=== PATIENT | female | born 1940 | race African-American/Black ===

== ENCOUNTER 2017-07-20 13:22 | Inpatient (IN) ==
[2017-07-20] MEDS ORDERED: Piperacillin/Tazobactam 3.375 GM in 0.9 % Sodium Chloride Mini Bag 100 ML IVPB ONE (20:03)
[2017-07-20] MEDS ORDERED: 0.9 % Sodium Chloride 1,000 ML IVC ONE (20:04)
--- NOTE | 2017-07-20 20:24 | Emergency Department Note ---
Disposition Clinical Impression: Pyelonephritis, Urinary tract infection due to ESBL Klebsiella Disposition: Admitted As Inpatient Condition: Fair Referrals: Jerome Bass MD [Primary Care Provider] - Forms: ED Satisfaction Letter, Work/School Release General Adult HPI - General Chief complaint: ED General Medical Stated complaint: "sent for admission by Dr. Bass". Time Seen by Provider: 07/20/17 19:58 Source: patient Limitations: no limitations - History of Present Illness Pain Scale: 0 - Related Data Home Medications Medication Instructions Recorded Confirmed Captopril [Capoten] 25 mg PO DAILY 03/14/15 07/20/17 Gabapentin [Neurontin] 600 mg PO HS 03/14/15 07/20/17 Levothyroxine [Synthroid] 75 mcg PO MOTUWETHFRSA 03/14/15 07/20/17 Trazodone HCl 200 mg PO HS 03/14/15 07/20/17 amLODIPine [Norvasc] 5 mg PO DAILY 03/14/15 07/20/17 diazePAM [Valium] 2 mg PO HS 03/14/15 07/20/17 metFORMIN [Glucophage] 500 mg PO BIDWM 03/14/15 07/20/17 Ergocalciferol (VITAMIN D2) 50,000 unit PO TU 07/20/17 07/20/17 [Vitamin D2] Furosemide [Lasix] 20 mg PO DAILY 07/20/17 07/20/17 HYDROcodone/Acet 7.5/325 mg [[place] 1 tab PO Q4H PRN 07/20/17 07/20/17 7.5-325 mg] Levothyroxine [Synthroid] 150 mcg PO GOEL 07/20/17 07/20/17 Omeprazole [PriLOSEC] 40 mg PO DAILY 07/20/17 07/20/17 Sodium Chloride/Aloe Vera [[place] 1 spray NS TID PRN 07/20/17 07/20/17 Saline Nasal Gel [place]] Warfarin perPT [Coumadin perPT] 6.5 mg PO QPM 07/20/17 07/20/17 cephALEXin [Keflex] 500 mg PO Q12H 07/20/17 07/20/17 Allergies Allergy/AdvReac Type Severity Reaction Status Date / Time Sulfa (Sulfonamide Allergy Rash Verified 03/14/15 20:04 Antibiotics) Past Medical History - Past Medical History Medical history: Reports: cancer, diabetes, GERD, hypertension Psychiatric history: Reports: no psych history - Social History Smoking Status: Former smoker Smokeless Tobacco Status: No Alcohol use: Reports: none Drug use: Reports: none Physical Exam - General Limitations: no limitations General appearance: alert, in no apparent distress Course Vital Signs Temperature 97.7 F 07/20/17 13:25 Pulse Rate 72 07/20/17 13:25 Respiratory Rate 18 07/20/17 13:25 Blood Pressure 160/72 07/20/17 13:25 O2 Sat by Pulse Oximetry 96 07/20/17 13:25 Temperature 97.7 F 07/20/17 13:25 Pulse Rate 72 07/20/17 13:25 Respiratory Rate 18 07/20/17 13:25 Blood Pressure 160/72 07/20/17 13:25 O2 Sat by Pulse Oximetry 96 07/20/17 13:25 Oxygen Delivery Oxygen Delivery Room Air Medical Decision Making - Lab Data Result diagrams: 07/20/17 20:35 07/20/17 20:35 Lab Results 07/20/17 07/20/17 07/20/17 Range/Units 20:35 20:35 20:35 WBC 5.9 D (4.3-11.1) K/mcL RBC 4.14 (3.82-4.97) M/mcL Hgb 11.9 (11.5-15.4) g/dL Hct 37.7 (35.3-44.9) % MCV 91.1 (83.0-100.0) fL MCH 28.7 (28.0-33.3) pg MCHC 31.6 (31.6-35.5) g/dL RDW 15.9 H (11.5-14.5) % Plt Count 261 (140-400) K/mcL MPV 8.7 L (9.4-12.4) fL Immature Gran % 0.5 (0-4) % Seg Neutrophils % 48.2 % Lymphocytes % 37.8 % Monocytes % 8.8 % Eosinophils % 4.2 % Basophils % 0.5 % Neutrophils # 2.8 (1.6-8.9) K/mcL Lymphocytes # 2.2 (0.6-4.6) K/mcL Monocytes # 0.5 (0.0-1.3) K/mcL Eosinophils # 0.3 (0.0-0.6) K/mcL Basophils # 0.0 (0.0-0.2) K/mcL Sodium 137 (136-145) mEq/L Potassium 3.6 (3.5-5.1) mEq/L Chloride 101 (98-107) mEq/L Carbon Dioxide 28 (23-29) mEq/L BUN 8 (8-23) mg/dL Creatinine 0.68 (0.60-1.20) mg/dL Est GFR ( Amer) > 60 (> 60) Est GFR (Non-Af Amer) > 60 (> 60) BUN/Creatinine Ratio 12 (6-26) Glucose 152 H (70-105) mg/dL Calculated Osmolality 285 (280-300) Lactic Acid 1.2 (0.5-2.2) mmol/L Calcium 9.5 (8.6-10.3) mg/dL Attestation Statement - Attestation Attestation: I examined this patient and my medical decision-making was reviewed with the Resident Physician. I agree with the documented findings, disposition and treatment plan as described except to the extent set forth below. Patient to ED for admission. Patient was sent in by her PCP as her urine grew out ESBL. Sensitive to Zosyn a carbon ertapenem's. Patient states she had a fever but is not today. On examination she is in no acute distress pleasant conversant. 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 Abdomen soft. Does have a urostomy bag in the right side of her abdomen from prior bladder cancer. Plan. IV antibiotics and admit. She does have a swollen left leg and will rule her out for DVT. Patient is on Coumadin. Ultrasound negative for DVT. A metabolic started. Admitted to medicine. Patient does not meet sepsis criteria.
--- NOTE | 2017-07-20 20:31 | Urgent Care Visit Notes ---
Disposition Clinical Impression: Pyelonephritis, Urinary tract infection due to ESBL Klebsiella Disposition: Admitted As Inpatient Condition: Fair Referrals: Jerome Bass MD [Primary Care Provider] - Forms: ED Satisfaction Letter, Work/School Release Time of Disposition: 21:41 History of Present Illness - General Chief complaint: ED General Medical Stated complaint: "sent for admission by Dr. Bass". Time Seen by Provider: 07/20/17 19:58 Limitations: no limitations Nursing Notes Reviewed: Yes Vital Signs Reviewed: Yes - History of Present Illness HPI Narrative: 77-year-old female complains of feeling ill with fever that started 5 days ago and severe chills that started 4 days ago. Patient states that she saw her PCP Dr. Bass 3 days ago and was given a antibiotic shot in her bottom, most likely Rocephin. Patient states her symptoms did not get any better and called her PCP again, who directed her to come to the ED for failed outpatient treatment. Patient has a history of bladder cancer and currently has a urostomy and bag because she had bladder cancer. Patient's currently on Coumadin for superficial DVTs in the past, but currently complains of worsening leg swelling over the past several days well. - Related Data Home Medications Medication Instructions Recorded Confirmed Captopril [Capoten] 25 mg PO DAILY 03/14/15 07/20/17 Gabapentin [Neurontin] 600 mg PO HS 03/14/15 07/20/17 Levothyroxine [Synthroid] 75 mcg PO MOTUWETHFRSA 03/14/15 07/20/17 Trazodone HCl 200 mg PO HS 03/14/15 07/20/17 amLODIPine [Norvasc] 5 mg PO DAILY 03/14/15 07/20/17 diazePAM [Valium] 2 mg PO HS 03/14/15 07/20/17 metFORMIN [Glucophage] 500 mg PO BIDWM 03/14/15 07/20/17 Ergocalciferol (VITAMIN D2) 50,000 unit PO TU 07/20/17 07/20/17 [Vitamin D2] Furosemide [Lasix] 20 mg PO DAILY 07/20/17 07/20/17 HYDROcodone/Acet 7.5/325 mg [[place] 1 tab PO Q4H PRN 07/20/17 07/20/17 7.5-325 mg] Levothyroxine [Synthroid] 150 mcg PO GOEL 07/20/17 07/20/17 Omeprazole [PriLOSEC] 40 mg PO DAILY 07/20/17 07/20/17 Sodium Chloride/Aloe Vera [[place] 1 spray NS TID PRN 07/20/17 07/20/17 Saline Nasal Gel [place]] Warfarin perPT [Coumadin perPT] 6.5 mg PO QPM 07/20/17 07/20/17 cephALEXin [Keflex] 500 mg PO Q12H 07/20/17 07/20/17 Allergies Allergy/AdvReac Type Severity Reaction Status Date / Time Sulfa (Sulfonamide Allergy Rash Verified 03/14/15 20:04 Antibiotics) All systems ED: reviewed and negative except as stated. Review of Systems: As Per HPI Constitutional: Reports: fever, chills Respiratory: Reports: cough Musculoskeletal: Reports: back pain Past Medical History - Past Medical History Attestation: Yes The following information was validated with the patient. Source: patient, nursing notes reviewed Medical history: Reports: cancer, diabetes, GERD, hypertension Psychiatric history: Reports: no psych history - Social History Smoking Status: Former smoker Smokeless Tobacco Status: No Alcohol use: Reports: none Drug use: Reports: none Physical Exam Vital Signs Temperature 97.7 F 07/20/17 13:25 Pulse Rate 72 07/20/17 13:25 Respiratory Rate 18 07/20/17 13:25 Blood Pressure 160/72 07/20/17 13:25 O2 Sat by Pulse Oximetry 96 07/20/17 13:25 Temperature 97.7 F 07/20/17 13:25 Pulse Rate 72 07/20/17 13:25 Respiratory Rate 18 07/20/17 13:25 Blood Pressure 160/72 07/20/17 13:25 O2 Sat by Pulse Oximetry 96 07/20/17 13:25 Oxygen Delivery Oxygen Delivery Room Air CONSTITUTIONAL: Well-appearing; well-nourished; A&O X 3, in no apparent distress. Patient is nontoxic-appearing, and has fluid speech, and is very pleasant Vital signs: Patient is afebrile at 97.7, pulse 72, respirations 18, blood pressure: hypertensive at 160/72, O2 sat 96% on room air. HEAD: Normocephalic; atraumatic EYES: PERRL, no scleral icterus NOSE: The nose is normal in appearance without rhinorrhea NECK: No JVD or distended neck veins RESP: Normal chest excursion with respiration; breath sounds clear and equal bilaterally; no wheezes, rhonchi, or rales CARD: Regular rhythm, without murmurs, rub or gallop ABD: Non-distended; non-tender, soft, without rigidity, rebound or guarding,no pulsatile mass. Urostomy with bag right lower quadrant. No signs of inflammation surrounding urostomy. CHEST: No pain with palpation SKIN: Normal for age and race; warm and dry without diaphoresis ; no apparent lesions EXTREMITIES: Pulses are 2 plus and equal times 4 extremities, asymmetric lower extremities. Left lower extremity is larger than the right pitting edema present 2+ - General Limitations: no limitations General appearance: alert, in no apparent distress Urogenital-Female - MDM Narrative Medical decision making narrative: Vital Signs Temperature 97.7 F 07/20/17 13:25 Pulse Rate 72 07/20/17 13:25 Respiratory Rate 18 07/20/17 13:25 Blood Pressure 160/72 07/20/17 13:25 O2 Sat by Pulse Oximetry 96 07/20/17 13:25 Temperature 97.7 F 07/20/17 13:25 Pulse Rate 72 07/20/17 13:25 Respiratory Rate 18 07/20/17 13:25 Blood Pressure 160/72 07/20/17 13:25 O2 Sat by Pulse Oximetry 96 07/20/17 13:25 Oxygen Delivery Oxygen Delivery Room Air Patient presents today with a diagnosis of UTI by ESBL Klebsiella. She reports having fevers and chills. Patient will need to be admitted for IV antibiotics. Sensitivities have not already been published. She does sensitivities to Zosyn , ertapenem and imipenem. Patient will be started on Zosyn 3.375 IV. Labs have been ordered to identify the extent of patient's infection. Peripheral blood cultures have been ordered and patient shows that she meets criteria for sepsis since symptoms have been going on for about 5 days and patient is 77 years old. Doppler study has been ordered for patient's left lower extremity for unilateral swelling, to identify possible DVT. Patient does not have any shortness of breath currently and does not have O2 sats last than 95% on room air. The patient begins to be symptomatic she should be sent for CTA of the chest. Patient's INR will be checked to see if she is therapeutic. If not patient will need to be bridged appropriately to get her back to therapeutic levels. Patient's DVT study was negative. Patient's lactic acid was negative and patient's WBC count was not elevated. Patient's creatinine level is not elevated as well. Patient has agreed to inpatient therapy and has been accepted for admission. Dr. Del Rio the hospitalist as accepted patient for admission in stable condition. - Medical Records Medical records reviewed: Yes I reviewed the patient's medical records. Review of patient's past microbiology reports show that patient has had several UTIs from Escherichia coli and Klebsiella. This is patient's second bout of ESBL - Lab Data Lab results reviewed: Yes I reviewed the patient's lab results. Lab results narrative: Short CBC 07/20/17 Range/Units 20:35 WBC 5.9 D (4.3-11.1) K/mcL Hgb 11.9 (11.5-15.4) g/dL Hct 37.7 (35.3-44.9) % Plt Count 261 (140-400) K/mcL Neutrophils # 2.8 (1.6-8.9) K/mcL BMP 07/20/17 Range/Units 20:35 Sodium 137 (136-145) mEq/L Potassium 3.6 (3.5-5.1) mEq/L Chloride 101 (98-107) mEq/L Carbon Dioxide 28 (23-29) mEq/L BUN 8 (8-23) mg/dL Creatinine 0.68 (0.60-1.20) mg/dL Glucose 152 H (70-105) mg/dL Calcium 9.5 (8.6-10.3) mg/dL Result diagrams: 07/20/17 20:35 07/20/17 20:35 - Radiology Data Radiology results reviewed: Yes I reviewed the patient's radiology results. Chest X-Ray 07/20/17 20:19 IMPRESSION: No acute cardiopulmonary findings. No significant change. D/ 07/20/2017 21:08:58 Landon Greenwood MD / Dennise Enriquez Interpreting Provider: Landon Greenwood MD - EKG Data EKG attestation: Yes I reviewed and interpreted this EKG. EKG results narrative: EKG taken 07/20/2017 at 2026 hrs. shows a sinus rhythm at a rate of 61 bpm with no acute ST elevations and no depressions in any leads. There is no QRS widening or QT prolongation either. Previous EKG for comparison taken in 04/30/2017 also shows a sinus rhythm rate of 60 bpm no change in morphology of waveform from today's EKG. Course - Reevaluation(s) Reevaluation #1: Patient still well. Currently comfortable. Currently has no complaints. Time: 21:25 Reevaluation #2: Patient has been updated on her admission and current labs. Patient is doing well. Patient thought that I was Dr. Bass when I walked into the room. But her friend in the room states that she is blind and she is pain attention to voices, and apparently I sound like Dr. Bass. Time: 21:39 - Consultations Consultation #1: Dr. Del Rio the hospitalist as accepted patient for admission in stable condition. Time: 21:25 Vital Signs Temperature 97.7 F 07/20/17 13:25 Pulse Rate 72 07/20/17 13:25 Respiratory Rate 18 07/20/17 13:25 Blood Pressure 160/72 07/20/17 13:25 O2 Sat by Pulse Oximetry 96 07/20/17 13:25 Temperature 97.7 F 07/20/17 13:25 Pulse Rate 72 07/20/17 13:25 Respiratory Rate 18 07/20/17 13:25 Blood Pressure 160/72 07/20/17 13:25 O2 Sat by Pulse Oximetry 96 07/20/17 13:25 Oxygen Delivery Oxygen Delivery Room Air
[2017-07-20 20:49] LABS: Basophils % 0.5 %; Eosinophils # 0.3 K/mcL (0.0-0.6); Eosinophils % 4.2 %; Hematocrit 37.7 % (35.3-44.9); Hemoglobin 11.9 g/dL (11.5-15.4); Immature Granulocytes % 0.5 % (0-4); Lymphocytes # 2.2 K/mcL (0.6-4.6); Lymphocytes % 37.8 %; Mean Corpuscular HGB Conc 31.6 g/dL (31.6-35.5); Mean Corpuscular Hemoglobin 28.7 pg (28.0-33.3); Mean Corpuscular Volume 91.1 fL (83.0-100.0); Mean Platelet Volume 8.7 fL (9.4-12.4); Monocytes # 0.5 K/mcL (0.0-1.3); Monocytes % 8.8 %; Platelet Count 261 K/mcL (140-400); Red Blood Count 4.14 M/mcL (3.82-4.97); Red Cell Distribution Width 15.9 % (11.5-14.5); Segmented Neutrophils % 48.2 %
[2017-07-20 21:00] LABS: Neutrophils # 2.8 K/mcL (1.6-8.9)
[2017-07-20 21:06] LABS: BUN/Creatinine Ratio 12 (6-26); Blood Urea Nitrogen 8 mg/dL (8-23); Calcium 9.5 mg/dL (8.6-10.3); Carbon Dioxide 28 mEq/L (23-29); Chloride 101 mEq/L (98-107); Glucose 152 mg/dL (70-105); Osmolality,Calculated 285 (280-300); Potassium 3.6 mEq/L (3.5-5.1); Sodium 137 mEq/L (136-145); eGFR For African Americans > 60 (> 60); eGFR For Non-African Americans > 60 (> 60)
[2017-07-20 21:29] LABS: INR 1.3
[2017-07-21] MEDS ORDERED: Dextrose Gel 15 GM/37.5 ML TUBE PO PRN ×2 (03:02)
[2017-07-21] MEDS ORDERED: D5% in Water 1,000 ML IVC PRN (03:02)
[2017-07-21] MEDS ORDERED: *HR* Dextrose 50 % in Water (Syg) 50 ML SYRINGE IVP PRN (03:02)
[2017-07-21] MEDS ORDERED: Acetaminophen 325 MG TABLET PO PRN (03:02)
[2017-07-21] MEDS ORDERED: Naloxone 0.4 MG/ML INJ IVP PRN (03:02)
[2017-07-21] MEDS ORDERED: Saline Nasal Spray 44 ML BOTTLE NS PRN (03:10)
--- NOTE | 2017-07-21 03:18 | Internal Med History&Physical ---
Date of Encounter: 07/21/17 Time of Encounter: 02:35 Internal Medicine - H&P: HPI Chief complaint: fever; UTI Admitted From: Emergency Dept Plans for Post Hospital Care: Home History of present illness: Ms. Pruett is a 77 year old female who presents to the ER as advised by her PCP. Patient was advised to come to the ER for a urine culture growing out ESBL producing Klebsiella. Patient had been on oral antibiotics for presumptive UTI. Urine culture came back growing the above organism requiring IV antibiotics. She therefore came to ER as advised. She had blood cultures obtained and was started on IV antibiotics. Upon my assessment of the patient, she reports having had fevers up to 102 degrees Fahrenheit over the last 4 days. She has had some nausea and poor appetite and fluid intake. However, she has had no vomiting or diarrhea. She denies any flank pain but she has had some suprapubic pain. Patient denies any chest pain, shortness of breath, cough, or congestion. She had bladder resection several years ago and has a urostomy in place. This was done for treatment of her bladder cancer. 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 However, her INR level is subtherapeutic. She did have low extremity Doppler of her left leg in the ER for concerns of DVT, and this was negative. She has complained of increased swelling and cramping in her left leg lately. Past Med Surg Social Fam HX - Past Medical History Attestation: Yes The following information was validated with the patient. Source: patient, old records reviewed Medical history: cancer, DVT, diabetes, GERD, hypertension Psychiatric history: no psych history - Past Surgical History Surgical History: cholecystectomy, hysterectomy, other (bladder resection and urostomy placement ) - Social History Smoking Status: Former smoker Smokeless Tobacco Status: No Alcohol use: none Drug use: none Current living situation: Home Activity Level: Independent ambulation Recent Out of Country Travel Within the Last 8 Weeks: No - Family History Mother Living Status: Hx Family Genitourinary Disorders: No Father Living Status: Hx Family Genitourinary Disorders: No Internal Medicine - H&P: Meds Captopril [Capoten] 25 mg PO DAILY 03/14/15 [History] Gabapentin [Neurontin] 600 mg PO HS 03/14/15 [History] Levothyroxine [Synthroid] 75 mcg PO MOTUWETHFRSA 03/14/15 [History] Trazodone HCl 200 mg PO HS 03/14/15 [History] amLODIPine [Norvasc] 5 mg PO DAILY 03/14/15 [History] diazePAM [Valium] 2 mg PO HS 03/14/15 [History] metFORMIN [Glucophage] 500 mg PO BIDWM 03/14/15 [History] Ergocalciferol (VITAMIN D2) [Vitamin D2] 50,000 unit PO TU 07/20/17 [History] Furosemide [Lasix] 20 mg PO DAILY 07/20/17 [History] HYDROcodone/Acet 7.5/325 mg [[place] 7.5-325 mg] 1 tab PO Q4H PRN 07/20/17 [ History] Levothyroxine [Synthroid] 150 mcg PO GOEL 07/20/17 [History] Omeprazole [PriLOSEC] 40 mg PO DAILY 07/20/17 [History] Sodium Chloride/Aloe Vera [[place] Saline Nasal Gel [place]] 1 spray NS TID PRN [History] Warfarin perPT [Coumadin perPT] 6.5 mg PO QPM 07/20/17 [History] cephALEXin [Keflex] 500 mg PO Q12H 07/20/17 [History] 3 Allergy/AdvReac Type Severity Reaction Status Date / Time Sulfa (Sulfonamide Allergy Rash Verified 03/14/15 20:04 Antibiotics) - Constitutional Constitutional: chills, fever(s), weakness, no night sweats - EENT Eyes: no blurry vision, no change in vision Ears: no ear pain, no tinnitus Nose, mouth and throat: no nasal congestion, no nasal discharge, no sinus pressure, no sore throat - Cardiovascular Cardiovascular ROS IM: no chest pain, no dyspnea, no dyspnea on exertion - Respiratory Respiratory: no cough, no hemoptysis, no chest congestion, no excessive phlegm production - Gastrointestinal Gastrointestinal: abdominal pain (suprapubic), nausea, no diarrhea, no hematemesis, no hematochezia, no melena, no vomiting - Genitourinary Genitourinary: no dysuria, no flank pain, no hematuria - Musculoskeletal Musculoskeletal ROS IM: muscle cramps, no arthralgias, no back pain, no joint swelling - Integumentary Integumentary IM: no rash, no jaundice - Neurological Neurological ROS: no disequilibrium, no dizziness, no focal weakness, no frequent falls - Psychiatric Psychiatric: no anxiety, no depression - Endocrine Endocrine IM: no polydipsia, no polyuria - Hematologic/Lymphatic Hematologic/Lymphatic: easy bruising, no lymphadenopathy - Allergic/Immunologic Allergic/Immunologic: no wheezing - Constitutional Vitals: Temp Pulse Resp BP Pulse Ox 97.5 F L 59 16 188/81 98 07/21/17 00:20 07/21/17 00:20 07/21/17 00:20 07/21/17 00:20 07/21/17 00:20 General appearance: Present: cooperative, mild distress, A&O X 3, pleasant, answers questions appropriately Exam: looks dry - Head Head exam: Present: atraumatic, normal inspection - Eye Eye exam: Present: EOMI, normal appearance, PERRL. Absent: scleral icterus Pupils: Present: normal accommodation - ENT ENT exam: Present: mucous membranes dry, normal exam, normal oropharynx - Neck Neck exam general surgery: Present: full ROM, supple. Absent: lymphadenopathy, tenderness, nuchal rigidity, thyromegaly - Respiratory Respiratory exam: Present: CTAB. Absent: chest wall tenderness, rales, respiratory distress, rhonchi, wheezes - Cardiovascular Cardiovascular exam: Present: RRR, +S1, +S2. Absent: diastolic murmur, systolic murmur - GI/Abdominal GI/Abdominal exam: Present: normal bowel sounds, soft, tenderness (mild suprapubic pain), no peritoneal signs. Absent: guarding, hepatomegaly, mass, rebound, splenomegaly - Extremities Exam Extremities exam: Present: calf tenderness (left leg), normal capillary refill, warm, radial pulses palpable and symmetrical. Absent: joint swelling Additional comments: left leg larger than right leg - Back Exam Back exam: Absent: CVA tenderness (L), CVA tenderness (R) - Neurological Exam Neurological exam: Present: alert, CN II-XII intact, oriented X3, no focal deficits - Psychiatric Psychiatric exam: Present: normal affect, normal mood - Skin Skin exam: Present: dry, warm. Absent: rash Internal Med - H&P Results - Labs CBC & Chem 7: 07/20/17 20:35 07/20/17 20:35 - Diagnostic Studies Chest x-ray Status: image reviewed by me (negative) - Assessment and plan (1) Urinary tract infection due to ESBL Klebsiella Current Visit: Yes Status: Acute Assessment and plan: 1. Patient placed on Zosyn based upon last urine culture and sensitivities. 2. Follow repeat urine and blood culture results and adjust antibiotics as necessary. (2) Complicated UTI (urinary tract infection) Current Visit: Yes Status: Acute Assessment and plan: 1. Will place on IVF and IV antibiotics -- catering to ESBL K. Pneumonia. 2. Follow clinical response and repeat culture results. 3. If necessary consult urology given her surgically altered anatomy. (3) Type 2 diabetes mellitus Current Visit: Yes Status: Chronic Assessment and plan: 1. Hold oral meds and place on SSI. 2. Monitor and adjust insulin dosing as necessary. 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 INR subtherapeutic. 2. Will place on Lovenox bridge therapy and continue Coumadin. 3. Adjust Coumadin dosing as necessary to achieve therapeutic INR.
[2017-07-21] MEDS: *HR* Enoxaparin 80 MG/0.8 ML SYRINGE SQ SCH ×2 (05:34→17:38)
[2017-07-21] MEDS: 0.9 % Sodium Chloride w KCl 20 MEQ/1,000 ML MLS IVC SCH ×2 (05:35→17:38)
[2017-07-21 06:36] LABS: INR 1.4; Prothrombin Time 15.1 Seconds (9.4-12.1)
[2017-07-21 06:53] LABS: Alanine Aminotransferase 10 Units/L (7-52); Albumin 3.2 g/dL (3.5-5.7); Alkaline Phosphatase 61 Units/L (34-104); Aspartate Amino Transferase 12 Units/L (13-39); BUN/Creatinine Ratio 12 (6-26); Bilirubin,Total 0.4 mg/dL (0.3-1.0); Blood Urea Nitrogen 7 mg/dL (8-23); Carbon Dioxide 28 mEq/L (23-29); Chloride 105 mEq/L (98-107); Globulin 3.1 g/dL (2.4-3.5); Glucose 101 mg/dL (70-105); Magnesium 1.8 mg/dL (1.6-2.6); Osmolality,Calculated 288 (280-300); Potassium 3.5 mEq/L (3.5-5.1); Sodium 140 mEq/L (136-145); Total Protein 6.3 g/dL (6.4-8.9); eGFR For African Americans > 60 (> 60); eGFR For Non-African Americans > 60 (> 60)
[2017-07-21 06:55] LABS: Basophils % 0.6 %; Eosinophils # 0.2 K/mcL (0.0-0.6); Eosinophils % 4.5 %; Hematocrit 35.1 % (35.3-44.9); Hemoglobin 11.4 g/dL (11.5-15.4); Immature Granulocytes % 0.7 % (0-4); Lymphocytes # 1.8 K/mcL (0.6-4.6); Lymphocytes % 33.3 %; Mean Corpuscular HGB Conc 32.5 g/dL (31.6-35.5); Mean Corpuscular Hemoglobin 29.3 pg (28.0-33.3); Mean Corpuscular Volume 90.2 fL (83.0-100.0); Mean Platelet Volume 8.9 fL (9.4-12.4); Monocytes # 0.5 K/mcL (0.0-1.3); Neutrophils # 2.7 K/mcL (1.6-8.9); Platelet Count 280 K/mcL (140-400); Red Blood Count 3.89 M/mcL (3.82-4.97); Red Cell Distribution Width 15.8 % (11.5-14.5); Segmented Neutrophils % 50.9 %
[2017-07-21] MEDS ORDERED: Piperacillin/Tazobactam 3.375 GM in 0.9 % Sodium Chloride Mini Bag 100 ML IVPB SCH (08:00)
[2017-07-21] MEDS: amLODIPine 5 MG TABLET PO SCH (08:32)
[2017-07-21] MEDS: Insulin LISPRO 300 UNITS/3 ML VIAL SQ SCH ×3 (08:34→17:36)
[2017-07-21] MEDS: *HR* HYDROcodone/Acet 7.5/325 mg TABLET PO PRN ×2 (14:57→21:53)
[2017-07-21] MEDS: Ertapenem 1,000 MG in 0.9 % Sodium Chloride Mini Bag 100 ML IVPB SCH (17:37)
[2017-07-21] MEDS ORDERED: *HR* Warfarin 5 MG TABLET PO ONE (18:00)
[2017-07-21] MEDS: diazePAM 2 MG TABLET PO SCH (21:53)
[2017-07-21] MEDS: Gabapentin 300 MG CAPSULE PO SCH (21:54)
[2017-07-21] MEDS: traZODone 50 MG TABLET PO SCH (21:54)
[2017-07-22] MEDS: *HR* Enoxaparin 80 MG/0.8 ML SYRINGE SQ SCH ×2 (05:42→17:15)
[2017-07-22 06:38] LABS: INR 1.4; Prothrombin Time 15.5 Seconds (9.4-12.1)
[2017-07-22] MEDS: *HR* HYDROcodone/Acet 7.5/325 mg TABLET PO PRN ×3 (06:53→21:42)
[2017-07-22] MEDS: amLODIPine 5 MG TABLET PO SCH (08:46)
[2017-07-22] MEDS: Furosemide 20 MG TABLET PO SCH (08:46)
[2017-07-22] MEDS: Ertapenem 1,000 MG in 0.9 % Sodium Chloride Mini Bag 100 ML IVPB SCH (08:47)
[2017-07-22] MEDS: Insulin LISPRO 300 UNITS/3 ML VIAL SQ SCH ×3 (08:48→17:15)
--- NOTE | 2017-07-22 11:38 | Internal Med Progress Note ---
Date of Encounter: 07/22/17 Time of Encounter: 11:15 - Assessment and plan (1) Urinary tract infection due to ESBL Klebsiella Current Visit: Yes Status: Acute Assessment and plan: 10 days of ertapenem day 2 today. She will need a PICC line which has been ordered. We will arrange for home service. Likely discharge tomorrow after PICC. (2) Complicated UTI (urinary tract infection) Current Visit: Yes Status: Acute Assessment and plan: see above (3) Type 2 diabetes mellitus Current Visit: Yes Status: Chronic (4) History of DVT of lower extremity Current Visit: Yes Status: Chronic Assessment and plan: Coumadin dose per pharmacy, discussed with the nurse. - Time Spent With Patient Total time spent is greater than 50% in coordination of care (as documented) at patient's floor/unit and/or counseling patient: 25 - 35 minutes - Subjective Interval history: She reports no new complaints today. No fever noted overnight. No events overnight. - Constitutional Vitals: Temp Pulse Resp BP Pulse Ox 97.7 F 75 15 148/78 94 07/22/17 10:58 07/22/17 10:58 07/22/17 10:58 07/22/17 10:58 07/22/17 10:58 General appearance: Present: cooperative, mild distress, A&O X 3, pleasant, answers questions appropriately Exam: Physical exam Gen: Comfortable, laying in bed, in no visible distress HEENT: Normocephalic, atraumatic. No conjunctival icterus. Moist oral mucosa. Neck: Supple Lungs: Clear to auscultation, no foreign sounds Heart: Normal S1-S2, no murmurs rubs or gallops Abdomen: Normoactive bowel sounds, no guarding rigidity or tenderness right- sided ostomy with urine. Extremities: No clubbing or cyanosi. 1+ edema of the extremities Neuro: Alert oriented 3, no focal deficits Skin: No skin lesions Internal Medicine: Result - Labs CBC & Chem 7: 07/21/17 06:16 07/21/17 06:16 - ABG Interpretation ABG results: PT/INR, D-dimer PT 15.5 Seconds (9.4-12.1) H 07/22/17 06:26 Consult Discharge Plan - Plan Referrals: Jerome Bass MD [Primary Care Provider] -
[2017-07-22] MEDS ORDERED: *HR* Warfarin 5 MG TABLET PO ONE (18:00)
[2017-07-22] MEDS: diazePAM 2 MG TABLET PO SCH (21:42)
[2017-07-22] MEDS: Gabapentin 300 MG CAPSULE PO SCH (21:42)
[2017-07-22] MEDS: traZODone 50 MG TABLET PO SCH (21:42)
[2017-07-23] MEDS: *HR* HYDROcodone/Acet 7.5/325 mg TABLET PO PRN ×2 (05:59→12:04)
[2017-07-23] MEDS: *HR* Enoxaparin 80 MG/0.8 ML SYRINGE SQ SCH (06:00)
[2017-07-23 07:07] LABS: INR 1.4
[2017-07-23] MEDS: Insulin LISPRO 300 UNITS/3 ML VIAL SQ SCH ×2 (08:38→12:02)
[2017-07-23] MEDS: Furosemide 20 MG TABLET PO SCH (09:01)
[2017-07-23] MEDS: Ertapenem 1,000 MG in 0.9 % Sodium Chloride Mini Bag 100 ML IVPB SCH (09:01)
[2017-07-23] MEDS: amLODIPine 5 MG TABLET PO SCH (09:01)
--- NOTE | 2017-07-23 10:13 | Discharge Summary ---
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 Pruett is a 77 year old female with a past medical history of bladder cancer, DVT, Gerd, hypertension, hypothyroidism, blind who presents to the ER as advised by her PCP. Patient was advised to come to the ER for a urine culture growing out ESBL producing Klebsiella. Patient had been on oral antibiotics for presumptive UTI. Urine culture came back growing the above organism requiring IV antibiotics. She therefore came to ER as advised. She had blood cultures obtained and was started on IV antibiotics. She reports having had fevers up to 102 degrees Fahrenheit over the last 4 days. She has had some nausea and poor appetite and fluid intake. However, she has had no vomiting or diarrhea. She denies any flank pain but she has had some suprapubic pain. Patient denies any chest pain, shortness of breath, cough, or congestion. She had bladder resection 4 years ago and has a urostomy in place. This was done for treatment of her bladder cancer. She also is on chronic Coumadin therapy for history of DVT after her surgery. However, her INR level is subtherapeutic. She did have low extremity Doppler of her left leg in the ER for concerns of DVT, and this was negative. She has complained of increased swelling and cramping in her left leg lately. Upon her admission she was started on IV antibiotics. Blood cultures were negative. Urinalysis from 2017 were positive for Klebsiella, OLIVIA that was sensitive to her are ertapenem, imipenem, Zosyn. Since urine sensitivity was back and blood cultures were negative pic line was ordered. She will have home health care assist in continue her IV antibiotics at home. She is to follow up with her urologist Dr. Guzman on in [place]. She was instructed to follow-up with her primary care physician in a week or 2 and to return to the hospital should she develop fever, chills, abdominal pain. She is blind but she stated that she has been blind for many years and lives at home alone but is fully capable to get around her house and do her daily activities without falls or concerns. She is alert and oriented times 3 with full capacity and stated clearly understanding of treatment plant. Discharge discussed with: patient - Time Spent with Patient Total time spent providing and/or coordinating discharge services: Greater than 30 minutes - Discharge Medications Prescriptions: Ertapenem [INVanz] 1,000 mg IM DAILY #7 vial Home Medications: Captopril [Capoten] 25 mg PO DAILY 03/14/15 [History] Gabapentin [Neurontin] 600 mg PO HS 03/14/15 [History] Levothyroxine [Synthroid] 75 mcg PO MOTUWETHFRSA 03/14/15 [History] Trazodone HCl 200 mg PO HS 03/14/15 [History] amLODIPine [Norvasc] 5 mg PO DAILY 03/14/15 [History] diazePAM [Valium] 2 mg PO HS 03/14/15 [History] metFORMIN [Glucophage] 500 mg PO BIDWM 03/14/15 [History] Ergocalciferol (VITAMIN D2) [Vitamin D2] 50,000 unit PO TU 07/20/17 [History] Furosemide [Lasix] 20 mg PO DAILY 07/20/17 [History] HYDROcodone/Acet 7.5/325 mg [[place] 7.5-325 mg] 1 tab PO Q4H PRN 07/20/17 [ History] Levothyroxine [Synthroid] 150 mcg PO GOEL 07/20/17 [History] Omeprazole [PriLOSEC] 40 mg PO DAILY 07/20/17 [History] Sodium Chloride/Aloe Vera [[place] Saline Nasal Gel [place]] 1 spray NS TID PRN [History] Warfarin perPT [Coumadin perPT] 6.5 mg PO QPM 07/20/17 [History] Ertapenem [INVanz] 1,000 mg IM DAILY #7 vial 07/23/17 [Rx] Allergies/Adverse Reactions: 3 Allergy/AdvReac Type Severity Reaction Status Date / Time Sulfa (Sulfonamide Allergy Rash Verified 03/14/15 20:04 Antibiotics) Date of admission: 07/21/17 03:02 Primary care physician: Jerome Bass MD Discharging clinician: Leandro Del Rio Anticipated date of discharge: 07/23/17 - Constitutional Vitals: Temp Pulse Resp BP Pulse Ox 97.6 F 64 16 176/75 95 07/23/17 07:13 07/23/17 07:13 07/23/17 07:13 07/23/17 07:13 07/23/17 07:13 General appearance: Present: cooperative, mild distress, A&O X 3, pleasant, answers questions appropriately Exam: Gen.: Vitals noted. No acute distress. AAOx3 HEENT: oropharynx clear, Normocephalic, atraumatic Cardiac: RRR, no murmur, +S1/S2 Pulmonary: CTA bilaterally, no wheezes, rales or rhonchi, equal chest expansion Abdomen: soft, nontender, Bowel sounds noted, no guarding, urostomy tube bowel on right side of abdomen MSK: ROM intact, no joint swelling noted Extremities: no BLE edema, nontender calf, no cyanosis or clubbing Neuro: A&Ox3, moves all extremities, is blind Psych: Appropriate mood and behavior - Patient Status Disposition: Home Health Service Condition: Good Functional capacity at discharge: independent ambulation Overall status at discharge: patient is back to baseline - Discharge Instructions Follow Up With: Letty Shields CNP [Advanced Practice Nurse] - 07/26/17 10:00 am Additional Instructions: Finish antibiotic at home with the assistance of home health to pumping station supervisor the IV antibiotic follow-up with your urologist Dr. Guzman and follow-up with your primary care physician a week or 2 return to the hospital should you develop fever, chills, abdominal pain - Diet and Activity Activity: resume usual activities as tolerated Diet: advance to your usual diet <Leandro Del Rio - Last Filed: 07/23/17 14:29> Date of Encounter: 07/23/17 - Discharge Diagnosis (1) Urinary tract infection due to ESBL Klebsiella Status: Acute (2) Complicated UTI (urinary tract infection) Status: Acute (3) Type 2 diabetes mellitus Status: Chronic (4) History of DVT of lower extremity Status: Chronic Hospital course: Ms. Sewards is a 77 year old female - Time Spent with Patient Total time spent providing and/or coordinating discharge services: Date of admission: 07/21/17 03:02 Primary care physician: Jerome Bass MD Consults: 07/23/17 11:58 Consult to Invasive Line Access Team [CONS] Routine Reason for Consult: extermination supervisor abx Line Type: EPIV - Constitutional Vitals: Temp Pulse Resp BP Pulse Ox 97.4 F L 71 14 164/78 98 07/23/17 10:57 07/23/17 10:57 07/23/17 10:57 07/23/17 10:57 07/23/17 10:57 - Attending Attestation Complicated UTI with Klebsiella ESBL continue Ertapenem time spent: 40 min I examined this patient and my medical decision-making was reviewed with the Resident Physician. I agree with the documented findings, disposition and treatment plan as described except to the extent set forth below.
--- NOTE | 2017-07-23 11:19 | Physician Discharge Referral ---
<Haley Woods - Last Filed: 07/23/17 11:18> Home Health/Hosp Referral Info Transfer to: Home Health Provider in Charge Post Discharge: PCP - Diagnosis (1) Urinary tract infection due to ESBL Klebsiella Priority: Primary Status: Acute (2) Complicated UTI (urinary tract infection) Priority: Secondary Status: Acute (3) Type 2 diabetes mellitus Priority: Secondary Status: Chronic (4) History of DVT of lower extremity Priority: Secondary Status: Chronic - Respiratory Orders None Smoking Cessation: Smoking cessation has been advised. For more information, call the [place] Tobacco Quit Line at 6-031-YVBV-NOW. - Diet/Nutrition Diet/Nutrition Orders: Regular - Activity Activity Orders: Up ad smiley, Ambulate - Services Needed Following services are medically necessary services: Home Health Aide Home Care Orders: IV antibiotic administration - Transfer Medications Prescriptions: Ertapenem [INVanz] 1,000 mg IM DAILY #7 vial Home Medications: Captopril [Capoten] 25 mg PO DAILY 03/14/15 [History] Gabapentin [Neurontin] 600 mg PO HS 03/14/15 [History] Levothyroxine [Synthroid] 75 mcg PO MOTUWETHFRSA 03/14/15 [History] Trazodone HCl 200 mg PO HS 03/14/15 [History] amLODIPine [Norvasc] 5 mg PO DAILY 03/14/15 [History] diazePAM [Valium] 2 mg PO HS 03/14/15 [History] metFORMIN [Glucophage] 500 mg PO BIDWM 03/14/15 [History] Ergocalciferol (VITAMIN D2) [Vitamin D2] 50,000 unit PO TU 07/20/17 [History] Furosemide [Lasix] 20 mg PO DAILY 07/20/17 [History] HYDROcodone/Acet 7.5/325 mg [[place] 7.5-325 mg] 1 tab PO Q4H PRN 07/20/17 [ History] Levothyroxine [Synthroid] 150 mcg PO GOLE 07/20/17 [History] Omeprazole [PriLOSEC] 40 mg PO DAILY 07/20/17 [History] Sodium Chloride/Aloe Vera [[place] Saline Nasal Gel [place]] 1 spray NS TID PRN [History] Warfarin perPT [Coumadin perPT] 6.5 mg PO QPM 04/13/18 [History] Ertapenem [INVanz] 1,000 mg IM DAILY #7 vial 07/23/17 [Rx] Allergies/Adverse Reactions: 3 Allergy/AdvReac Type Severity Reaction Status Date / Time Sulfa (Sulfonamide Allergy Rash Verified 03/14/15 20:04 Antibiotics) Certification: Further, I certify that my clinical findings support that this patient is homebound (i.e. absences from home require considerable and taxing effort and are for medical reasons or temple services or infrequently or short duration when for other reasons) because: Homebound Reason: Leaving home requires considerable and taxing effort due to condition Attestation: My signature below is to certify that this patient is under my care and that I, or nurse practitioner, or a physician's facilities assistant working with me, has a face-to -face encounter with this patient. Dr. Haley Woods <Leandro Del Rio - Last Filed: 07/23/17 14:29> - Diagnosis (1) Urinary tract infection due to ESBL Klebsiella Status: Acute (2) Complicated UTI (urinary tract infection) Status: Acute (3) Type 2 diabetes mellitus Status: Chronic (4) History of DVT of lower extremity Status: Chronic - Respiratory Orders Smoking Cessation: Smoking cessation has been advised. For more information, call the [place] Tobacco Quit Line at 3-683-OTOO-NOW. Certification: Further, I certify that my clinical findings support that this patient is homebound (i.e. absences from home require considerable and taxing effort and are for medical reasons or temple services or infrequently or short duration when for other reasons) because: Attestation: My signature below is to certify that this patient is under my care and that I, or nurse practitioner, or a physician's facilities assistant working with me, has a face-to -face encounter with this patient.
[2017-07-23] MEDS: Warfarin perPT PO SCH (12:53)
[2017-07-23] MEDS ORDERED: *HR* HYDROcodone/Acet 7.5/325 mg TABLET PO PRN (15:03)
[2017-07-23 15:24] VITALS: BP 160/74
[2017-07-23] MEDS ORDERED: *HR* Warfarin 2.5 MG TABLET PO ONE (18:00)
[2017-07-23] MEDS ORDERED: *HR* Warfarin 4 MG TABLET PO ONE (18:00)
--- NOTE | 2017-07-27 09:03 | Electrocardiograph Report ---
[address] [address] Test Date: 2017-07-20 Pat Name: Elana Pruett Department: 102 Room: 3A45 Gender: F Clinical Staff Anesthesiologist: Layo : 1940 Requested By: Héctor Polanco Order Number: [id number] Reading MD: Jovanny Gómez Measurements Intervals [place] Rate: 61 P: 48 [place]: 147 QRS: -18 QRSD: 94 T: 3 QT: 439 QTc: 442 Interpretive Statements SINUS RHYTHM WITH SINUS ARRHYTHMIA POOR R-WAVE PROGRESSION POSSIBLE LEFT VENTRICULAR HYPERTROPHY NONSPECIFIC ST AND T-WAVE CHANGES Electronically Signed On 07-27-2017 9:01:40 EDT by Jovanny Gómez
== END 2017-07-23 17:20 | disposition home health service (06) | DRG 690 ==
LOC: EMEROO 13:22 → 3ANU 13:22 → SUATTDRO 07-21 03:02
PROVIDERS: ADMIT Internal Medicine; ATTEND Pediatrics

== ENCOUNTER 2018-01-07 13:58 | Inpatient (IN) ==
--- NOTE | 2018-01-07 14:09 | Emergency Department Note ---
Disposition Clinical Impression: Acute kidney injury, Cellulitis of left leg Disposition: Admitted As Inpatient Condition: Fair General Adult HPI - General Stated complaint: flu Time Seen by Provider: 01/07/18 14:00 - Related Data Home Medications Medication Instructions Recorded Confirmed Gabapentin [Neurontin] 600 mg PO HS 03/14/15 01/07/18 Levothyroxine [Synthroid] 75 mcg PO MOTUWETHFRSA 03/14/15 01/07/18 diazePAM [Valium] 2 mg PO HS 03/14/15 01/07/18 metFORMIN [Glucophage] 500 mg PO BIDWM 03/14/15 01/07/18 Ergocalciferol (VITAMIN D2) 50,000 unit PO TU 07/20/17 01/07/18 [Vitamin D2] Levothyroxine [Synthroid] 150 mcg PO GOEL 07/20/17 01/07/18 Omeprazole [PriLOSEC] 40 mg PO DAILY 07/20/17 01/07/18 Sodium Chloride/Aloe Vera [[place] 1 spray NS TID PRN 07/20/17 01/07/18 Saline Nasal Gel [place]] Furosemide [Lasix] 40 mg PO DAILY PRN 01/07/18 01/07/18 HYDROcodone/Acet 10/325 mg [[place] 1 tab PO Q4H PRN 01/07/18 01/07/18 10-325 mg] Ipratropium [place] 2 spr NS BID 01/07/18 01/07/18 amLODIPine [Norvasc] 5 mg PO DAILY 01/07/18 01/07/18 Allergies Allergy/AdvReac Type Severity Reaction Status Date / Time Sulfa (Sulfonamide Allergy Rash Verified 03/14/15 20:04 Antibiotics) Past Medical History - Past Medical History Medical history: Reports: cancer, DVT, diabetes, GERD, hypertension Surgical history: Reports: cholecystectomy, hysterectomy, other (bladder resection and urostomy placement ) Psychiatric history: Reports: no psych history - Social History Smoking Status: Former smoker Smokeless Tobacco Status: No Alcohol use: Reports: none Drug use: Reports: none Course Vital Signs Temperature 98.9 F 01/07/18 14:02 Pulse Rate 86 01/07/18 14:02 Respiratory Rate 18 01/07/18 14:02 Blood Pressure 112/51 01/07/18 14:02 O2 Sat by Pulse Oximetry 97 01/07/18 14:02 Temperature 98.9 F 01/07/18 14:02 Pulse Rate 81 01/07/18 17:51 Respiratory Rate 16 01/07/18 17:51 Blood Pressure 127/50 01/07/18 17:51 O2 Sat by Pulse Oximetry 99 01/07/18 17:51 Oxygen Delivery Oxygen Delivery Room Air Medical Decision Making - Lab Data Result diagrams: 01/07/18 14:05 01/07/18 14:05 Lab Results 01/07/18 01/07/18 01/07/18 Range/Units 14:05 14:05 14:05 WBC 13.4 H D (4.3-11.1) K/mcL RBC 3.98 (3.82-4.97) M/mcL Hgb 11.7 (11.5-15.4) g/dL Hct 36.6 (35.3-44.9) % MCV 92.0 (83.0-100.0) fL MCH 29.4 (28.0-33.3) pg MCHC 32.0 (31.6-35.5) g/dL RDW 15.0 H (11.5-14.5) % Plt Count 213 (140-400) K/mcL MPV 9.8 (9.4-12.4) fL Immature Gran % Test Not Performed Seg Neutrophils % 39.0 % Band Neutrophils % 28.0 H (0-4) % Lymphocytes % 14.0 % Monocytes % 8.0 % Eosinophils % Test Not Performed Basophils % Test Not Performed Metamyelocytes % 4.0 H (0) % Myelocytes % 7.0 H (0) % Neutrophils # 9.0 H (1.6-8.9) K/mcL Lymphocytes # 1.9 (0.6-4.6) K/mcL Monocytes # 1.1 (0.0-1.3) K/mcL Eosinophils # Test Not Performed Basophils # Test Not Performed Platelet Estimate Normal (Normal) PT 17.0 H (9.4-12.1) Seconds INR 1.5 Sodium 135 L (136-145) mEq/L Potassium 3.4 L (3.5-5.1) mEq/L Chloride 99 (98-107) mEq/L Carbon Dioxide 30 H (23-29) mEq/L BUN 26 H (8-23) mg/dL Creatinine 1.40 H (0.60-1.20) mg/dL Est GFR ( Amer) 44 L (> 60) Est GFR (Non-Af Amer) 37 L (> 60) BUN/Creatinine Ratio 19 (6-26) Glucose 162 H (70-105) mg/dL Calculated Osmolality 288 (280-300) Lactic Acid (0.5-2.2) mmol/L Calcium 8.8 (8.6-10.3) mg/dL Total Bilirubin 0.4 (0.3-1.0) mg/dL Direct Bilirubin 0.2 (0.0-0.2) mg/dL Indirect Bilirubin 0.2 (0.0-1.2) mg/dL AST 15 (13-39) Units/L ALT 10 (7-52) Units/L Alkaline Phosphatase 45 (34-104) Units/L Serum Total Protein 6.2 L (6.4-8.9) g/dL Albumin 3.3 L (3.5-5.7) g/dL Globulin 2.9 (2.4-3.5) g/dL Albumin/Globulin Ratio 1.1 (1.1-2.2) Urine Color (Yellow) Urine Clarity (Clear) Urine pH (5.0-8.0) pH Units Ur Specific [place] (1.010-1.025) Urine Protein (Neg-Trace) mg/dL Urine Glucose (UA) (Normal) mg/dL Urine Ketones (Negative) mg/dL Urine Blood (Negative) Urine Nitrite (Negative) Urine Bilirubin (Negative) Urine Urobilinogen (Normal) mg/dL Ur Leukocyte Esterase (Negative) Urine Microscopic WBC (0-3) per hpf Ur Squamous Epith Cells (None-Few) per lpf Urine Bacteria (None-Few) per hpf Hyaline Casts (None-Few) per lpf Ur Culture Indicated? (NO) 01/07/18 01/07/18 Range/Units 14:37 14:55 WBC (4.3-11.1) K/mcL RBC (3.82-4.97) M/mcL Hgb (11.5-15.4) g/dL Hct (35.3-44.9) % MCV (83.0-100.0) fL MCH (28.0-33.3) pg MCHC (31.6-35.5) g/dL RDW (11.5-14.5) % Plt Count (140-400) K/mcL MPV (9.4-12.4) fL Immature Gran % Seg Neutrophils % % Band Neutrophils % (0-4) % Lymphocytes % % Monocytes % % Eosinophils % Basophils % Metamyelocytes % (0) % Myelocytes % (0) % Neutrophils # (1.6-8.9) K/mcL Lymphocytes # (0.6-4.6) K/mcL Monocytes # (0.0-1.3) K/mcL Eosinophils # Basophils # Platelet Estimate (Normal) PT (9.4-12.1) Seconds INR Sodium (136-145) mEq/L Potassium (3.5-5.1) mEq/L Chloride (98-107) mEq/L Carbon Dioxide (23-29) mEq/L BUN (8-23) mg/dL Creatinine (0.60-1.20) mg/dL Est GFR ( Amer) (> 60) Est GFR (Non-Af Amer) (> 60) BUN/Creatinine Ratio (6-26) Glucose (70-105) mg/dL Calculated Osmolality (280-300) Lactic Acid 2.0 (0.5-2.2) mmol/L Calcium (8.6-10.3) mg/dL Total Bilirubin (0.3-1.0) mg/dL Direct Bilirubin (0.0-0.2) mg/dL Indirect Bilirubin (0.0-1.2) mg/dL AST (13-39) Units/L ALT (7-52) Units/L Alkaline Phosphatase (34-104) Units/L Serum Total Protein (6.4-8.9) g/dL Albumin (3.5-5.7) g/dL Globulin (2.4-3.5) g/dL Albumin/Globulin Ratio (1.1-2.2) Urine Color Yellow (Yellow) Urine Clarity Hazy A (Clear) Urine pH 6.5 (5.0-8.0) pH Units Ur Specific [place] 1.015 (1.010-1.025) Urine Protein 30 H (Neg-Trace) mg/dL Urine Glucose (UA) Normal (Normal) mg/dL Urine Ketones Negative (Negative) mg/dL Urine Blood Negative (Negative) Urine Nitrite Negative (Negative) Urine Bilirubin Negative (Negative) Urine Urobilinogen Normal (Normal) mg/dL Ur Leukocyte Esterase Trace H (Negative) Urine Microscopic WBC 5-15 H (0-3) per hpf Ur Squamous Epith Cells Many H (None-Few) per lpf Urine Bacteria Many H (None-Few) per hpf Hyaline Casts Few (None-Few) per lpf Ur Culture Indicated? NO. A (NO) Attestation Statement - Attestation Attestation: I examined this patient and my medical decision-making was reviewed with the Resident Physician. I agree with the documented findings, disposition and treatment plan as described except to the extent set forth below. [id number] time provided Patient arrives by EMS from home. She complains of generalized malaise. She states her temperature was 103 earlier today. She appears generally weak on exam without focality. She is blind
--- NOTE | 2018-01-07 14:11 | Emergency Department Note ---
Disposition Clinical Impression: Acute kidney injury, Cellulitis of left leg Disposition: Admitted As Inpatient Condition: Fair Referrals: Jerome Bass MD [Primary Care Provider] - Forms: ED Satisfaction Letter Time of Disposition: 16:04 General Adult HPI - General Chief complaint: ED Weakness Stated complaint: flu Time Seen by Provider: 01/07/18 14:00 Source: patient, EMS Mode of arrival: EMS Limitations: no limitations Nursing Notes Reviewed: Yes Vital Signs Reviewed: Yes - History of Present Illness HPI Narrative: 77-year-old female presents emergency department via EMS for weakness. States for the past 24 hours she is not been feeling well. She was at [employer] today and start experiencing some chills and had a documented temperature 103. She went home and checked her temperature again and was reportedly 101. She denies any cough but does report some increase worker breathing. She denies any chest pain. She has been feeling nauseated and has not eaten well. She denies any abdominal pain. She has a urostomy placed 4 years ago without any change in output. She is also noticed some increase swelling to her left leg. She states is normally more swollen on the left of the right but it is read as well. Denies history of blood clots. She lives by herself. Pain Scale: 0 - Related Data Home Medications Medication Instructions Recorded Confirmed Gabapentin [Neurontin] 600 mg PO HS 03/14/15 01/07/18 Levothyroxine [Synthroid] 75 mcg PO MOTUWETHFRSA 03/14/15 01/07/18 diazePAM [Valium] 2 mg PO HS 03/14/15 01/07/18 metFORMIN [Glucophage] 500 mg PO BIDWM 03/14/15 01/07/18 Ergocalciferol (VITAMIN D2) 50,000 unit PO TU 07/20/17 01/07/18 [Vitamin D2] Levothyroxine [Synthroid] 150 mcg PO GOEL 07/20/17 01/07/18 Omeprazole [PriLOSEC] 40 mg PO DAILY 07/20/17 01/07/18 Sodium Chloride/Aloe Vera [[place] 1 spray NS TID PRN 07/20/17 01/07/18 Saline Nasal Gel [place]] Furosemide [Lasix] 40 mg PO DAILY PRN 01/07/18 01/07/18 HYDROcodone/Acet 10/325 mg [[place] 1 tab PO Q4H PRN 01/07/18 01/07/18 10-325 mg] Ipratropium [place] 2 spr NS BID 01/07/18 01/07/18 amLODIPine [Norvasc] 5 mg PO DAILY 01/07/18 01/07/18 Allergies Allergy/AdvReac Type Severity Reaction Status Date / Time Sulfa (Sulfonamide Allergy Rash Verified 03/14/15 20:04 Antibiotics) All systems ED: reviewed and negative except as stated. Review of Systems: As Per HPI Constitutional: Reports: fever, chills, weakness ENT ED: Denies: congestion Cardiovascular: Denies: chest pain, palpitations Respiratory: Reports: dyspnea Gastrointestinal: Reports: nausea. Denies: abdominal pain, vomiting, diarrhea Genitourinary: Denies: frequency Musculoskeletal: Denies: back pain Integumentary: Reports: abrasion. Denies: rash Neurological: Denies: headache Psychiatric: Denies: anxiety Past Medical History - Past Medical History Attestation: Yes The following information was validated with the patient. Source: patient Medical history: Reports: cancer, DVT, diabetes, GERD, hypertension Surgical history: Reports: cholecystectomy, hysterectomy, other (bladder resection and urostomy placement ) Psychiatric history: Reports: no psych history - Social History Smoking Status: Former smoker Smokeless Tobacco Status: No Alcohol use: Reports: none Drug use: Reports: none Physical Exam - General Limitations: no limitations General appearance: alert, in no apparent distress - Head Head exam: atraumatic, normocephalic, normal inspection - Eye Eye exam: Present: normal appearance, PERRL, EOMI. Absent: nystagmus - ENT ENT exam: normal exam, normal oropharynx, mucous membranes moist, TM's normal bilaterally - Neck Neck exam: Present: normal inspection, full ROM, trachea midline - Chest Chest inspection: Present: normal inspection, symmetric chest wall rise - Respiratory Respiratory exam: Present: normal lung sounds bilaterally. Absent: respiratory distress, wheezes - Cardiovascular Cardiovascular exam: Present: regular rate, normal rhythm, normal heart sounds. Absent: systolic murmur, diastolic murmur - Abdominal Exam Abdominal exam: Present: soft, Non-Tender, normal bowel sounds, other (urostomy in left abdomen). Absent: tenderness, distention, guarding, rebound, rigidity - Extremities Exam Extremities exam: Present: tenderness, pedal edema (L > R), calf tenderness, other (warmth and erythematous in left leg) - Neurological Exam Neurological exam: Present: alert, oriented X3 - Psychiatric Psychiatric exam: Present: normal affect, normal mood - Skin Skin exam: Present: warm, dry, intact, normal color, erythema. Absent: cyanosis , diaphoresis, mottled - Expanded Skin Exam Distribution: LLE Description: Present: erythematous, swelling. Absent: vesicular, crusting, discharge, fluctuant, indurated Course Course Narrative: Patient presents with complaint of weakness and fever at home. She is afebrile here. She has no other complaints at this time. On examination her left leg is significantly more swollen compared to the right with increased redness concerning for cellulitis. She also has a roster me to the computer source of infection. She also reports of a cough and some shortness of breath. Will obtain a chest x-ray and perform a septic workup including influenza test. Patient will likely require admission. - Reevaluation(s) Reevaluation #1: Cardio Doppler currently in the room evaluated the patient. Review for labs shows a leukocytosis with [place] and left shift. Her lactate is 2.0. Her creatinine is significantly elevated from baseline 1.4. She has ever urostomy and continues to make urine. The urinalysis does not appear consistent with infection at this time. Her chest x-ray does not reveal any pulmonary etiology. Her influenza is negative. At this time the source of her fever in likely infection is that probably due to cellulitis in the left lower extremity. Will treat her with IV vancomycin at this time. Patient will likely require admission. She is currently receiving 1 L normal saline bolus. Time: 16:02 Reevaluation #2: Preliminary venous Doppler ultrasound report given by outer diameter technician, negative for deep vein thrombosis. Findings appear consistent with cellulitis even on ultrasound. No abscess seen. Patient will be admitted. She will be placed on vancomycin and Unasyn. Impression is acute kidney injury and cellulitis. Time: 16:43 - Consultations Consultation #1: Spoke with on-call hospitalist silvia Hyde to admit for cellulitis and acute kidney injury. Request to discontinue the vancomycin at this time and will continue to monitor and possibly escalated as needed. Time: 16:45 Vital Signs Temperature 98.9 F 01/07/18 14:02 Pulse Rate 86 01/07/18 14:02 Respiratory Rate 18 01/07/18 14:02 Blood Pressure 112/51 01/07/18 14:02 O2 Sat by Pulse Oximetry 97 01/07/18 14:02 Temperature 98.9 F 01/07/18 14:02 Pulse Rate 75 01/07/18 15:49 Respiratory Rate 16 01/07/18 15:49 Blood Pressure 119/69 01/07/18 15:49 O2 Sat by Pulse Oximetry 100 01/07/18 15:49 Oxygen Delivery Oxygen Delivery Room Air Medical Decision Making - MDM Narrative Medical decision making narrative: Patient was discussed with my attending physician who agrees with ED management and final disposition. They independently evaluated the patient. Please refer to their attestation to this encounter for additional information. This note was generated by [employer] voice recognition software and as a result grammatical or spelling errors may occur using this program. - Medical Records Medical records reviewed: Yes I reviewed the patient's medical records. - Lab Data Lab results reviewed: Yes I reviewed the patient's lab results. Result diagrams: 01/07/18 14:05 01/07/18 14:05 Lab Results 01/07/18 01/07/18 01/07/18 Range/Units 14:05 14:05 14:05 WBC 13.4 H D (4.3-11.1) K/mcL RBC 3.98 (3.82-4.97) M/mcL Hgb 11.7 (11.5-15.4) g/dL Hct 36.6 (35.3-44.9) % MCV 92.0 (83.0-100.0) fL MCH 29.4 (28.0-33.3) pg MCHC 32.0 (31.6-35.5) g/dL RDW 15.0 H (11.5-14.5) % Plt Count 213 (140-400) K/mcL MPV 9.8 (9.4-12.4) fL Immature Gran % Test Not Performed Seg Neutrophils % 39.0 % Band Neutrophils % 28.0 H (0-4) % Lymphocytes % 14.0 % Monocytes % 8.0 % Eosinophils % Test Not Performed Basophils % Test Not Performed Metamyelocytes % 4.0 H (0) % Myelocytes % 7.0 H (0) % Neutrophils # 9.0 H (1.6-8.9) K/mcL Lymphocytes # 1.9 (0.6-4.6) K/mcL Monocytes # 1.1 (0.0-1.3) K/mcL Eosinophils # Test Not Performed Basophils # Test Not Performed Platelet Estimate Normal (Normal) PT 17.0 H (9.4-12.1) Seconds INR 1.5 Sodium 135 L (136-145) mEq/L Potassium 3.4 L (3.5-5.1) mEq/L Chloride 99 (98-107) mEq/L Carbon Dioxide 30 H (23-29) mEq/L BUN 26 H (8-23) mg/dL Creatinine 1.40 H (0.60-1.20) mg/dL Est GFR ( Amer) 44 L (> 60) Est GFR (Non-Af Amer) 37 L (> 60) BUN/Creatinine Ratio 19 (6-26) Glucose 162 H (70-105) mg/dL Calculated Osmolality 288 (280-300) Lactic Acid (0.5-2.2) mmol/L Calcium 8.8 (8.6-10.3) mg/dL Total Bilirubin 0.4 (0.3-1.0) mg/dL Direct Bilirubin 0.2 (0.0-0.2) mg/dL Indirect Bilirubin 0.2 (0.0-1.2) mg/dL AST 15 (13-39) Units/L ALT 10 (7-52) Units/L Alkaline Phosphatase 45 (34-104) Units/L Serum Total Protein 6.2 L (6.4-8.9) g/dL Albumin 3.3 L (3.5-5.7) g/dL Globulin 2.9 (2.4-3.5) g/dL Albumin/Globulin Ratio 1.1 (1.1-2.2) Urine Color (Yellow) Urine Clarity (Clear) Urine pH (5.0-8.0) pH Units Ur Specific [place] (1.010-1.025) Urine Protein (Neg-Trace) mg/dL Urine Glucose (UA) (Normal) mg/dL Urine Ketones (Negative) mg/dL Urine Blood (Negative) Urine Nitrite (Negative) Urine Bilirubin (Negative) Urine Urobilinogen (Normal) mg/dL Ur Leukocyte Esterase (Negative) Urine Microscopic WBC (0-3) per hpf Ur Squamous Epith Cells (None-Few) per lpf Urine Bacteria (None-Few) per hpf Hyaline Casts (None-Few) per lpf Ur Culture Indicated? (NO) 01/07/18 01/07/18 Range/Units 14:37 14:55 WBC (4.3-11.1) K/mcL RBC (3.82-4.97) M/mcL Hgb (11.5-15.4) g/dL Hct (35.3-44.9) % MCV (83.0-100.0) fL MCH (28.0-33.3) pg MCHC (31.6-35.5) g/dL RDW (11.5-14.5) % Plt Count (140-400) K/mcL MPV (9.4-12.4) fL Immature Gran % Seg Neutrophils % % Band Neutrophils % (0-4) % Lymphocytes % % Monocytes % % Eosinophils % Basophils % Metamyelocytes % (0) % Myelocytes % (0) % Neutrophils # (1.6-8.9) K/mcL Lymphocytes # (0.6-4.6) K/mcL Monocytes # (0.0-1.3) K/mcL Eosinophils # Basophils # Platelet Estimate (Normal) PT (9.4-12.1) Seconds INR Sodium (136-145) mEq/L Potassium (3.5-5.1) mEq/L Chloride (98-107) mEq/L Carbon Dioxide (23-29) mEq/L BUN (8-23) mg/dL Creatinine (0.60-1.20) mg/dL Est GFR ( Amer) (> 60) Est GFR (Non-Af Amer) (> 60) BUN/Creatinine Ratio (6-26) Glucose (70-105) mg/dL Calculated Osmolality (280-300) Lactic Acid 2.0 (0.5-2.2) mmol/L Calcium (8.6-10.3) mg/dL Total Bilirubin (0.3-1.0) mg/dL Direct Bilirubin (0.0-0.2) mg/dL Indirect Bilirubin (0.0-1.2) mg/dL AST (13-39) Units/L ALT (7-52) Units/L Alkaline Phosphatase (34-104) Units/L Serum Total Protein (6.4-8.9) g/dL Albumin (3.5-5.7) g/dL Globulin (2.4-3.5) g/dL Albumin/Globulin Ratio (1.1-2.2) Urine Color Yellow (Yellow) Urine Clarity Hazy A (Clear) Urine pH 6.5 (5.0-8.0) pH Units Ur Specific [place] 1.015 (1.010-1.025) Urine Protein 30 H (Neg-Trace) mg/dL Urine Glucose (UA) Normal (Normal) mg/dL Urine Ketones Negative (Negative) mg/dL Urine Blood Negative (Negative) Urine Nitrite Negative (Negative) Urine Bilirubin Negative (Negative) Urine Urobilinogen Normal (Normal) mg/dL Ur Leukocyte Esterase Trace H (Negative) Urine Microscopic WBC 5-15 H (0-3) per hpf Ur Squamous Epith Cells Many H (None-Few) per lpf Urine Bacteria Many H (None-Few) per hpf Hyaline Casts Few (None-Few) per lpf Ur Culture Indicated? NO. A (NO) - Radiology Data Radiology results reviewed: Yes I reviewed the patient's radiology results. Chest X-Ray 01/07/18 14:05 IMPRESSION: No acute process. D/ / Fidencio Crawford MD / Fidencio Crawford MD Interpreting Provider: Fidencio Crawford MD - EKG Data EKG #1 EKG attestation: Yes I reviewed and interpreted this EKG. EKG results narrative: EKG performed 1415 normal sinus rhythm 85 beats per minute, Q waves seen in the inferior leads, no ST elevation or depression, intervals within normal limits. Compared to prior EKG performed for 2017 with similar consistent findings of poor R wave progression Q waves in inferior leads. No acute ischemic changes.
[2018-01-07 14:50] LABS: Hematocrit 36.6 % (35.3-44.9); Hemoglobin 11.7 g/dL (11.5-15.4); Mean Corpuscular Hemoglobin 29.4 pg (28.0-33.3); Mean Platelet Volume 9.8 fL (9.4-12.4); Platelet Count 213 K/mcL (140-400); Red Blood Count 3.98 M/mcL (3.82-4.97)
[2018-01-07 14:59] LABS: INR 1.5
[2018-01-07 15:06] LABS: Albumin 3.3 g/dL (3.5-5.7); Albumin/Globulin Ratio 1.1 (1.1-2.2); Bilirubin,Direct 0.2 mg/dL (0.0-0.2); Bilirubin,Indirect 0.2 mg/dL (0.0-1.2); Bilirubin,Total 0.4 mg/dL (0.3-1.0); Calcium 8.8 mg/dL (8.6-10.3); Globulin 2.9 g/dL (2.4-3.5); Potassium 3.4 mEq/L (3.5-5.1); Total Protein 6.2 g/dL (6.4-8.9)
[2018-01-07 15:13] LABS: Bilirubin,Urine Negative (Negative); Blood,Urine Negative (Negative); Color,Urine Yellow (Yellow); Glucose,Urine (UA) Normal (Normal); Ketones,Urine Negative (Negative); Leukocyte Esterase,Urine Trace (Negative); Nitrite,Urine Negative (Negative); PH,Urine 6.5 pH Units (5.0-8.0); Protein,Urine 30 mg/dL (Neg-Trace); Specific Gravity,Urine 1.015 (1.010-1.025); Urobilinogen,Urine Normal (Normal)
[2018-01-07 15:15] LABS: Bacteria,Urine Many per hpf (None-Few); Hyaline Casts,Urine Few per lpf (None-Few); Squamous Epithelial Cell,Urine Many per lpf (None-Few)
[2018-01-07 15:18] LABS: Clarity,Urine Hazy (Clear)
[2018-01-07] MEDS ORDERED: 0.9 % Sodium Chloride 1,000 ML IVC ONE (15:30)
[2018-01-07 15:33] LABS: Lymphocytes # 1.9 K/mcL (0.6-4.6); Monocytes # 1.1 K/mcL (0.0-1.3)
[2018-01-07 15:34] LABS: Platelet Estimate Normal (Normal)
[2018-01-07] MEDS ORDERED: Ampicillin/Sulbactam 1,500 MG in 0.9 % Sodium Chloride Mini Bag 100 ML IVPB ONE (16:06)
[2018-01-07] MEDS ORDERED: *HR* HYDROcodone/Acet 5/325 mg TABLET PO ONE (16:29)
[2018-01-07] MEDS ORDERED: Naloxone 0.4 MG/ML INJ IVP PRN (19:44)
[2018-01-07] MEDS ORDERED: Acetaminophen 325 MG TABLET PO PRN (19:44)
--- NOTE | 2018-01-07 20:15 | Internal Med History&Physical ---
Date of Encounter: 01/07/18 Time of Encounter: 20:18 Internal Medicine - H&P: HPI Chief complaint: fever Admitted From: Home Plans for Post Hospital Care: Home History of present illness: Ms. Pruett is a 77 year old female with past medical history of bladder CA s/p post resection (no chemo/radiation) ,DM-type II, Hx DVT, MELVIN, recurrent UTI who presents with fever. Pt states while she was [place] [employer] 01[place]06[place]2018 she developed chills. She states she assumed it was the air conditioning in the [place]. States when she got home shills persisted so she checked her temp and it 102. Pt states she had chills all night , hence why she presented to the ED to be evaluated Pt is clinically/legally blind and did not note that her LLE was red and swollen. She does complain of pain of LLE with palpation. In ED WBC 13.4 with band 28. Na 135, K 3.4, BUN 26 and Cr 1.40 Urine analysis appears to be contaminated with squamous epith cells Chest x ray did not show any acute process. Past Med Surg Social Fam HX - Past Medical History Medical history: cancer, DVT, diabetes, GERD, hypertension Additional medical history: Blind Psychiatric history: no psych history - Past Surgical History Surgical History: cholecystectomy, hysterectomy, other Additional surgical history: BLADDER REMOVED R/T BLADDER CANCER (4yrs ago) - Social History Smoking Status: Former smoker Smokeless Tobacco Status: No Alcohol use: none Drug use: none - Family History Mother Family Member Ethnicity: Non- Living Status: Age at : 89 Cause of : UTI Hx Family Cardiac Disorders: Yes Hx Family Respiratory Disorders: No Hx Family Cancer: No Hx Family GI Disorders: No Hx Family Genitourinary Disorders: No Hx Family Endocrine Disorder: No Hx Family Musculoskeletal Disorders: No Hx Family Neuromuscular Disorders: No Hx Family Neurologic Disorders: No Hx Family HEENT Disorders: No Hx Family Autoimmune Disorders: No Hx Family Reproductive Disorders: No Hx Family Psychosocial Disorders: No Hx Family Medical Disorders: No Father Adopted: No Family Member Ethnicity: Non- Living Status: Age at : 81 Cause of : Diabetic Infection Hx Family Cardiac Disorders: No Hx Family Respiratory Disorders: No Hx Family Cancer: No Hx Family GI Disorders: No Hx Family Genitourinary Disorders: No Hx Family Endocrine Disorder: Yes Hx Family Musculoskeletal Disorders: No Hx Family Neuromuscular Disorders: No Hx Family Neurologic Disorders: No Hx Family HEENT Disorders: No Hx Family Autoimmune Disorders: No Hx Family Reproductive Disorders: No Hx Family Psychosocial Disorders: No Hx Family Medical Disorders: No Internal Medicine - H&P: Meds Gabapentin [Neurontin] 600 mg PO HS 03/14/15 [History] Levothyroxine [Synthroid] 75 mcg PO MOTUWETHFRSA 03/14/15 [History] diazePAM [Valium] 2 mg PO HS 03/14/15 [History] metFORMIN [Glucophage] 500 mg PO BIDWM 03/14/15 [History] Ergocalciferol (VITAMIN D2) [Vitamin D2] 50,000 unit PO TU 07/20/17 [History] Levothyroxine [Synthroid] 150 mcg PO GOEL 07/20/17 [History] Omeprazole [PriLOSEC] 40 mg PO DAILY 07/20/17 [History] Sodium Chloride/Aloe Vera [[place] Saline Nasal Gel [place]] 1 spray NS TID PRN [History] Furosemide [Lasix] 40 mg PO DAILY PRN 01/07/18 [History] HYDROcodone/Acet 10/325 mg [[place] 10-325 mg] 1 tab PO Q4H PRN 01/07/18 [History] Ipratropium [place] 2 spr NS BID 01/07/18 [History] amLODIPine [Norvasc] 5 mg PO DAILY 01/07/18 [History] 3 Allergy/AdvReac Type Severity Reaction Status Date / Time Sulfa (Sulfonamide Allergy Rash Verified 03/14/15 20:04 Antibiotics) All Systems PM: A 10-system review of systems was performed and is negative for pertinent findings except as documented above in the HPI. - Constitutional Vitals: Temp Pulse Resp BP Pulse Ox 98.0 F 80 17 122/71 99 01/07/18 18:55 01/07/18 18:55 01/07/18 18:55 01/07/18 18:55 01/07/18 18:55 General appearance: Present: A&O X 3, no acute distress Exam: . - Head Head exam: Present: atraumatic, normocephalic - Eye Eye exam: Present: PERRL, conjuntiva pink, sclera anicteric Pupils: Present: PERRL Additional comments: legally blind - Neck Neck exam general surgery: Present: supple, trachea midline. Absent: lymphadenopathy - Respiratory Respiratory exam: Present: CTAB. Absent: accessory muscle use, rales, rhonchi, wheezes - Cardiovascular Cardiovascular exam: Present: RRR, +S1, +S2. Absent: diastolic murmur, gallop, rubs, systolic murmur - GI/Abdominal GI/Abdominal exam: Present: normal bowel sounds, soft, no peritoneal signs. Absent: distended, tenderness - Extremities Exam Extremities exam: Present: warm, radial pulses palpable and symmetrical. Absent : calf tenderness, cyanotic, pedal edema - Neurological Exam Neurological exam: Present: CN II-XII intact, oriented X3, no focal deficits. Absent: pronater drift, facial droop, speech deficit - Skin Skin exam: Present: dry, erythema Additional comments: LLE indurated, positive erythema extending to thigh. Pain with palpation. Internal Med - H&P Results - Labs CBC & Chem 7: 01/07/18 14:05 01/07/18 14:05 - Assessment and plan (1) Cellulitis of left leg Current Visit: Yes Status: Acute Assessment and plan: LLE indurated, positive erythema extending to thigh. Pain with palpation. Started on Vanc and Unasyn in ED and will continue for now. Will monitor for response. (2) Type 2 diabetes mellitus Current Visit: No Status: Chronic Assessment and plan: On Metformin. Will hold due to possible MELVIN/CKD vs CKd. Will place on basal and SSI and monitor glucose. 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 Will check B/L LE doppler. (4) Acute kidney injury Current Visit: Yes Status: Acute Assessment and plan: Will give IVF and reassess in am. Hx of bladder CA so has nephrostomy tube. Urine appears normal. (5) Fever Current Visit: Yes Status: Acute Assessment and plan: Will continue with IV antibiotic for now. Will check blood cultures. Tylenol prn. Qualifiers: Qualified Code(s): R50.9 - Fever, unspecified - Time Spent With Patient Total time spent is greater than 50% in coordination of care (as documented) at patient's floor/unit and/or counseling patient: 25 - 35 minutes
[2018-01-07] MEDS ORDERED: *HR* HYDROcodone/Acet 10/325 mg TABLET PO PRN (20:18)
[2018-01-07] MEDS ORDERED: Vancomycin 1 EACH in 0.9 % Sodium Chloride 250 ML IVPB ONE (20:20)
[2018-01-07] MEDS ORDERED: Dextrose Gel 15 GM/37.5 ML TUBE PO PRN ×2 (20:21)
[2018-01-07] MEDS ORDERED: D5% in Water 1,000 ML IVC PRN (20:21)
[2018-01-07] MEDS ORDERED: *HR* Dextrose 50 % in Water (Syg) 50 ML SYRINGE IVP PRN (20:21)
[2018-01-07 20:47] LABS: Estimated Average Glucose 137 mg/dl; Hemoglobin A1C 6.4 %
[2018-01-07] MEDS ORDERED: Vancomycin 1 EACH in 0.9 % Sodium Chloride 250 ML IVPB SCH (21:00)
[2018-01-07] MEDS ORDERED: (Ipratropium Bromide [Ipratropium Bromide] 2 SPR) NS SCH (21:00)
[2018-01-07] MEDS: Gabapentin 300 MG CAPSULE PO SCH (21:46)
[2018-01-07] MEDS: diazePAM 2 MG TABLET PO SCH (21:46)
[2018-01-07] MEDS: 0.9 % Sodium Chloride 1,000 ML IVC SCH (21:51)
[2018-01-07] MEDS: Insulin DETEMIR 100 UNIT/ML X5UNITS SQ SCH (22:06)
[2018-01-08] MEDS: Ampicillin/Sulbactam 1,500 MG in 0.9 % Sodium Chloride Mini Bag 100 ML IVPB SCH ×4 (00:54→18:59)
[2018-01-08] MEDS: *HR* Heparin 5,000 UNIT/ML VIAL SQ SCH ×2 (05:44→18:59)
[2018-01-08] MEDS ORDERED: Saline Nasal Spray 44 ML BOTTLE NS PRN (07:45)
[2018-01-08] MEDS: amLODIPine 5 MG TABLET PO SCH (08:10)
[2018-01-08] MEDS: Insulin LISPRO 300 UNITS/3 ML VIAL SQ SCH ×3 (08:14→16:59)
[2018-01-08 08:30] LABS: BUN/Creatinine Ratio 25 (6-26); Blood Urea Nitrogen 19 mg/dL (8-23); Calcium 8.1 mg/dL (8.6-10.3); Carbon Dioxide 26 mEq/L (23-29); Chloride 104 mEq/L (98-107); Glucose 101 mg/dL (70-105); Osmolality,Calculated 286 (280-300); Sodium 137 mEq/L (136-145); eGFR For Non-African Americans > 60 (> 60)
[2018-01-08 08:44] LABS: Hematocrit 31.8 % (35.3-44.9); Hemoglobin 10.4 g/dL (11.5-15.4); Mean Corpuscular HGB Conc 32.7 g/dL (31.6-35.5); Mean Corpuscular Hemoglobin 29.3 pg (28.0-33.3); Mean Corpuscular Volume 89.6 fL (83.0-100.0); Mean Platelet Volume 9.7 fL (9.4-12.4); Platelet Count 189 K/mcL (140-400); Red Blood Count 3.55 M/mcL (3.82-4.97); Red Cell Distribution Width 15.1 % (11.5-14.5)
[2018-01-08] MEDS: *HR* HYDROcodone/Acet 10/325 mg TABLET PO PRN (13:49)
--- NOTE | 2018-01-08 14:47 | Internal Med Progress Note ---
Hospitalist Progress Note - Encounter Date of Encounter: 01/08/18 Time of Encounter: 14:50 - Subjective Interval History: LLE erythema much improved. Pt still has bilateral LE edema L.R. She sates LLE pain also improved. She denies having fever during the night. She denies CP or SOB. - Exam Vitals: Temp Pulse Resp BP Pulse Ox 99 F 96 20 125/55 97 01/08/18 11:29 01/08/18 11:29 01/08/18 11:29 01/08/18 11:29 01/08/18 11:29 Exam: General appearance: Present: A&O X 3, no acute distress Exam: - Head Head exam: Present: atraumatic, normocephalic - Eye Eye exam: Present: PERRL, conjuntiva pink, sclera anicteric Pupils: Present: PERRL Additional comments: legally blind - Neck Neck exam general surgery: Present: supple, trachea midline. Absent: lymphadenopathy - Respiratory Respiratory exam: Present: CTAB. Absent: accessory muscle use, rales, rhonchi, wheezes - Cardiovascular Cardiovascular exam: Present: RRR, +S1, +S2. Absent: diastolic murmur, gallop, rubs, systolic murmur - GI/Abdominal GI/Abdominal exam: Present: normal bowel sounds, soft, no peritoneal signs. Absent: distended, tenderness - Extremities Exam Extremities exam: Present: warm, radial pulses palpable and symmetrical. Absent : calf tenderness, cyanotic, but positive pedal edema L> R. - Neurological Exam Neurological exam: Present: CN II-XII intact, oriented X3, no focal deficits. Absent: pronater drift, facial droop, speech deficit - Skin Skin exam: Present: dry, erythema Additional comments: LLE indurated, positive erythema extending to thigh but much improved today. Significantly decreased LE redness. Pain with palpation. - Assessment and Plan (1) Cellulitis of left leg Current Visit: Yes Status: Acute Assessment and Plan: LLE indurated, positive erythema extending to thigh on admission swelling and redness significantly improved. Decreased pain with palpation. Though clincally improving, pt's WBC 15.3 and pt still running low grade temp. Will continue Vanc and Unasyn for now. Will reassess in am. Blood culture pending. (2) Type 2 diabetes mellitus Current Visit: No Status: Chronic Assessment and Plan: On Metformin. Will hold due to possible MELVIN/CKD vs CKd. Will place on basal and SSI and monitor glucose. (3) History of DVT of lower extremity Current Visit: No Status: Chronic Assessment and Plan: B/L LE doppler negative for DVT. Not on anticoagulation at this time as diagnosis was old. (4) Acute kidney injury Current Visit: Yes Status: Acute Assessment and Plan: Resolved with IVF. Cr down from 1.40 to 076. Hx of bladder CA so has nephrostomy tube. Urine appears normal. (5) Fever Current Visit: Yes Status: Acute Assessment and Plan: Still running low grade temp. Will continue Vancomycin and Unasyn for now. (6) Edema Current Visit: Yes Status: Acute Assessment and Plan: Pt states she is on Lasix 40 mg PO QD prn at home. SHe does not have documented hx of CHF. Restarting o Lasix 40 mg PO QD. Will check Echo DVT Prophylaxis: heparin - Summary of Assessment and Plan Summary of Assessment and Plan: Ms. Pruett is a 77 year old female with past medical history of bladder CA s/p post resection (no chemo/radiation) ,DM-type II, Hx DVT, MELVIN, recurrent UTI who presents with fever. Pt states [facility] she developed chills. She states she assumed it was the air conditioning in the [facility]. States when she got home shills persisted so she checked her temp and it 102. Pt states she had chills all night , hence why she presented to the ED to be evaluated Pt is clinically/legally blind and did not note that her LLE was red and swollen. She does complain of pain of LLE with palpation. - Time Spent with Patient Total time spent is greater than 50% in coordination of care (as documented) at patient's floor/unit and/or counseling patient: Internal Medicine: Result - Labs CBC & Chem 7: 01/08/18 07:39 01/08/18 07:39 Labs: Short CBC 01/08/18 Range/Units 07:39 WBC 15.3 H (4.3-11.1) K/mcL Hgb 10.4 L (11.5-15.4) g/dL Hct 31.8 L (35.3-44.9) % Plt Count 189 (140-400) K/mcL BMP 01/08/18 07:39 Sodium 137 Potassium 3.0 L Chloride 104 Carbon Dioxide 26 BUN 19 Creatinine 0.76 Glucose 101 Calcium 8.1 L - ABG Interpretation ABG results: PT/INR, D-dimer PT 17.0 Seconds (9.4-12.1) H 01/07/18 14:05 Consult Discharge Plan - Plan Referrals: Jerome Bass MD [Primary Care Provider] - (2) Type 2 diabetes mellitus 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
[2018-01-08] MEDS: 0.9 % Sodium Chloride 1,000 ML IVC SCH (14:55)
[2018-01-08] MEDS: diazePAM 2 MG TABLET PO SCH (20:43)
[2018-01-08] MEDS: Insulin DETEMIR 100 UNIT/ML X5UNITS SQ SCH (20:43)
[2018-01-08] MEDS: Gabapentin 300 MG CAPSULE PO SCH (20:43)
[2018-01-09] MEDS: Ampicillin/Sulbactam 1,500 MG in 0.9 % Sodium Chloride Mini Bag 100 ML IVPB SCH ×2 (00:09→06:21)
[2018-01-09] MEDS: *HR* HYDROcodone/Acet 10/325 mg TABLET PO PRN ×4 (00:10→23:50)
[2018-01-09] MEDS: Insulin LISPRO 300 UNITS/3 ML VIAL SQ SCH ×4 (01:24→20:58)
[2018-01-09] MEDS: *HR* Heparin 5,000 UNIT/ML VIAL SQ SCH ×2 (06:25→17:43)
[2018-01-09 07:11] LABS: Hematocrit 31.3 % (35.3-44.9); Hemoglobin 10.1 g/dL (11.5-15.4); Mean Corpuscular HGB Conc 32.3 g/dL (31.6-35.5); Mean Corpuscular Hemoglobin 29.5 pg (28.0-33.3); Mean Corpuscular Volume 91.5 fL (83.0-100.0); Mean Platelet Volume 9.8 fL (9.4-12.4); Platelet Count 182 K/mcL (140-400); Red Blood Count 3.42 M/mcL (3.82-4.97); Red Cell Distribution Width 15.5 % (11.5-14.5)
[2018-01-09 07:34] LABS: BUN/Creatinine Ratio 18 (6-26); Blood Urea Nitrogen 12 mg/dL (8-23); Calcium 8.3 mg/dL (8.6-10.3); Carbon Dioxide 24 mEq/L (23-29); Chloride 109 mEq/L (98-107); Glucose 73 mg/dL (70-105); Osmolality,Calculated 284 (280-300); Potassium 3.8 mEq/L (3.5-5.1); Sodium 138 mEq/L (136-145); eGFR For Non-African Americans > 60 (> 60)
[2018-01-09 07:56] LABS: Eosinophils # 0.3 K/mcL (0.0-0.6); Lymphocytes # 3.7 K/mcL (0.6-4.6); Monocytes # 1.4 K/mcL (0.0-1.3); Neutrophils # 11.5 K/mcL (1.6-8.9)
[2018-01-09 07:57] LABS: Platelet Estimate Slight Decrease (Normal)
[2018-01-09] MEDS: Furosemide 40 MG TABLET PO SCH (08:16)
[2018-01-09] MEDS: amLODIPine 5 MG TABLET PO SCH (08:17)
[2018-01-09] MEDS: Ampicillin/Sulbactam 3,000 MG in 0.9 % Sodium Chloride Mini Bag 100 ML IVPB SCH ×2 (12:30→17:41)
--- NOTE | 2018-01-09 18:37 | Internal Med Progress Note ---
Hospitalist Progress Note - Encounter Date of Encounter: 01/09/18 Time of Encounter: 18:41 - Subjective Interval History: LLE erythema much improved. Pt still has bilateral LE edema L.R. She sates LLE pain also improved. She denies having fever during the night. She denies CP or SOB. - Exam Vitals: Temp Pulse Resp BP Pulse Ox 97.8 F 91 20 160/78 100 01/09/18 15:31 01/09/18 15:31 01/09/18 15:31 01/09/18 15:31 01/09/18 15:31 Exam: General appearance: Present: A&O X 3, no acute distress Exam: - Head Head exam: Present: atraumatic, normocephalic - Eye Eye exam: Present: PERRL, conjuntiva pink, sclera anicteric Pupils: Present: PERRL Additional comments: legally blind - Neck Neck exam general surgery: Present: supple, trachea midline. Absent: lymphadenopathy - Respiratory Respiratory exam: Present: CTAB. Absent: accessory muscle use, rales, rhonchi, wheezes - Cardiovascular Cardiovascular exam: Present: RRR, +S1, +S2. Absent: diastolic murmur, gallop, rubs, systolic murmur - GI/Abdominal GI/Abdominal exam: Present: normal bowel sounds, soft, no peritoneal signs. Absent: distended, tenderness - Extremities Exam Extremities exam: Present: warm, radial pulses palpable and symmetrical. Absent : calf tenderness, cyanotic, but positive pedal edema L> R. - Neurological Exam Neurological exam: Present: CN II-XII intact, oriented X3, no focal deficits. Absent: pronater drift, facial droop, speech deficit - Skin Skin exam: Present: dry, erythema Additional comments: LLE indurated, positive erythema extending to thigh, much improved but starting to become erythematous again. Pain with palpation. - Assessment and Plan (1) Cellulitis of left leg Current Visit: Yes Status: Acute Assessment and Plan: LLE indurated, positive erythema extending to thigh on admission swelling and redness significantly improved. Decreased pain with palpation. Though clincally improving 01/08/2018 but WBC 15.3 went up, and pt still running low grade temp. 01/09/2018 LLE developing erythema again and WBC up to 16.9. Pt still having low grade temp. Blood culture pending. Will continue Vanc and DC Unasyn for now. Will start on Merrem. Consulting ID for assistance with antibiotic therapy (2) Type 2 diabetes mellitus Current Visit: No Status: Chronic Assessment and Plan: On Metformin. Will hold due to possible MELVIN/CKD vs CKd. Will place on basal and SSI and monitor glucose. 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 Cr down from 1.40 to 0.76 to 0.65. Hx of bladder CA so has nephrostomy tube. Urine appears normal. (5) Fever Current Visit: Yes Status: Acute Assessment and Plan: Still running low grade temp and WBC trending up Consulting ID for assistance. (6) Edema Current Visit: Yes Status: Acute Assessment and Plan: Some slight improvement in edema. Pt on lasix 40 mg QD. DVT Prophylaxis: heparin - Summary of Assessment and Plan Summary of Assessment and Plan: Ms. Pruett is a 77 year old female with past medical history of bladder CA s/p post resection (no chemo/radiation) ,DM-type II, Hx DVT, MELVIN, recurrent UTI who presents with fever. Pt states while she was at [facility] 01[place]2018 she developed chills. She states she assumed it was the air conditioning in the [facility]. States when she got home shills persisted so she checked her temp and it 102. Pt states she had chills all night , hence why she presented to the ED to be evaluated Pt is clinically/legally blind and did not note that her LLE was red and swollen. She does complain of pain of LLE with palpation. - Time Spent with Patient Total time spent is greater than 50% in coordination of care (as documented) at patient's floor/unit and/or counseling patient: less than 15 minutes Plan of Care Discussed with: patient Internal Medicine: Result - Labs CBC & Chem 7: 01/09/18 06:28 01/09/18 06:28 Labs: Short CBC 01/09/18 Range/Units 06:28 WBC 16.9 H (4.3-11.1) K/mcL Hgb 10.1 L (11.5-15.4) g/dL Hct 31.3 L (35.3-44.9) % Plt Count 182 (140-400) K/mcL Neutrophils # 11.5 H (1.6-8.9) K/mcL BMP 01/09/18 06:28 Sodium 138 Potassium 3.8 D Chloride 109 H Carbon Dioxide 24 BUN 12 Creatinine 0.65 Glucose 73 Calcium 8.3 L - ABG Interpretation ABG results: PT/INR, D-dimer PT 17.0 Seconds (9.4-12.1) H 01/07/18 14:05 - Impressions Impressions Echocardiogram 01/08/18 14:58 Impressions: LVEF 60%. Normal LV chamber size, wall thickness and function. Mild left ventricular diastolic dysfunction. Normal right ventricular structure and function. Mild mitral regurgitation. Mild pulmonary hypertension. Left Ventricular Wall Motion: Rest Echo Findings All wall segments showed normal motion. Findings: Study Quality * Technically adequate exam. ECG Findings * Normal sinus rhythm. Left Ventricle * LVEF 60%. * Normal LV chamber size, wall thickness and function. * Mild left ventricular diastolic dysfunction. Right Ventricle * Normal right ventricular structure and function. Left Atrium * Normal left atrial size. Right Atrium * Normal right atrial size. Aortic Valve * Aortic valve not well visualized. * No aortic regurgitation. * No aortic stenosis. Mitral Valve * Normal mitral valve structure. * Mild mitral regurgitation. * No mitral stenosis. Tricuspid Valve * Normal tricuspid valve structure and function. * Trace tricuspid regurgitation. * Mild pulmonary hypertension. Pulmonic Valve * Pulmonic valve is not well visualized. * No pulmonic regurgitation. Aorta * Normally sized aortic root. Pericardium * The pericardium appears normal. IVC * Normal IVC dimensions and inspiratory collapse. Pulmonary Artery * Normal visualized portions of the main pulmonary artery. 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
[2018-01-09] MEDS: diazePAM 2 MG TABLET PO SCH (20:58)
[2018-01-09] MEDS: Gabapentin 300 MG CAPSULE PO SCH (20:58)
[2018-01-09] MEDS: Insulin DETEMIR 100 UNIT/ML X5UNITS SQ SCH (20:58)
[2018-01-10] MEDS: *HR* HYDROcodone/Acet 10/325 mg TABLET PO PRN ×4 (05:12→21:45)
[2018-01-10] MEDS: *HR* Heparin 5,000 UNIT/ML VIAL SQ SCH ×2 (05:12→15:41)
[2018-01-10 05:27] LABS: Hematocrit 35.5 % (35.3-44.9); Hemoglobin 11.1 g/dL (11.5-15.4); Mean Corpuscular HGB Conc 31.3 g/dL (31.6-35.5); Mean Corpuscular Hemoglobin 29.1 pg (28.0-33.3); Mean Corpuscular Volume 92.9 fL (83.0-100.0); Mean Platelet Volume 9.9 fL (9.4-12.4); Platelet Count 204 K/mcL (140-400); Red Blood Count 3.82 M/mcL (3.82-4.97); Red Cell Distribution Width 15.4 % (11.5-14.5)
[2018-01-10 05:36] LABS: BUN/Creatinine Ratio 14 (6-26); Blood Urea Nitrogen 8 mg/dL (8-23); Calcium 8.5 mg/dL (8.6-10.3); Carbon Dioxide 23 mEq/L (23-29); Chloride 107 mEq/L (98-107); Glucose 99 mg/dL (70-105); Osmolality,Calculated 286 (280-300); Potassium 3.1 mEq/L (3.5-5.1); Sodium 139 mEq/L (136-145); eGFR For Non-African Americans > 60 (> 60)
[2018-01-10] MEDS ORDERED: Meropenem 500 MG in Water for inj. (sterile) 20 ML 5 ML IVP SCH (06:00)
[2018-01-10] MEDS: Insulin LISPRO 300 UNITS/3 ML VIAL SQ SCH ×4 (08:28→19:53)
[2018-01-10] MEDS: amLODIPine 5 MG TABLET PO SCH (08:29)
[2018-01-10] MEDS: Furosemide 40 MG TABLET PO SCH (08:29)
--- NOTE | 2018-01-10 10:32 | Electrocardiograph Report ---
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
--- NOTE | 2018-01-10 10:33 | Infectious Disease Consult ---
Date of Encounter: 01/10/18 Time of Encounter: 10:33 Assessment and Plan (1) Sepsis Status: Acute Assessment and plan: Secondary to cellulitis Could be secondary to UTI but less likely Patient is complaining of some back pain, consider CT abdomen and pelvis with no contrast Qualifiers: Sepsis type: sepsis due to unspecified organism Qualified Code(s): A41.9 - Sepsis, unspecified organism (2) Cellulitis Status: Acute Assessment and plan: Obvious cellulitis but with no obvious signs of neck fascia or abscess or fluctuance or crepitus I have no point of reference and there was no border drawn around the cellulitis but clearly cloth mercerizer back tender erythematosus and very warm to touch Patient was on vancomycin and Unasyn since 01/07/18. Antibiotics were switched to vancomycin and meropenem last night but never received a dose and today he currently patient is only on cefepime I am concerned for gram-positive cocci and MRSA coverage. I recommend restarting the vancomycin with goal vancomycin trough of 10-15 Continue cefepime for now Consider checking inflammatory markers and if symptoms do not improve consider imaging Duration of treatment probably 10-14 days but we can likely switch her to oral antibiotics once clinically better Monitor labs and for drug toxicity Discussed with pharmacy staff Qualifiers: Site of cellulitis: extremity Site of cellulitis of extremity: lower extremity Laterality: right Qualified Code(s): L03.115 - Cellulitis of right lower limb (3) Acute kidney injury Status: Acute Assessment and plan: Likely secondary to sepsis Resolved (4) Type 2 diabetes mellitus Status: Chronic Qualifiers: 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 Pruett is a 77 year old female Patient is 77-year-old woman who presented to [facility] on 01/07/2018 with fever, we are consulted today on 01/10/2018 with cellulitis that was not improving with vancomycin and Zosyn. Patient is 77-year-old woman with history of bladder cancer status post resection with no chemoradiation, diabetes mellitus type 2, history of DVT, acute kidney injury and recurrent UTI presented to the hospital on January 07 with fever. Most of the information was taken from medical records. Apparently [facility] and started having chills. Patient went home and checked her temperature was 102 Fahrenheit. Patient apparently had also left lower extremity swelling and redness but she did not get attention to it. Since admission, her MAXIMUM TEMPERATURE was 100 Fahrenheit, some tachycardia no tachypnea and hemodynamically stable. Presenting labs revealed a WBC of 13.4 with 28% bands patient was also noted to be in acute kidney injury with a BUN of 26 creatinine of 1.4 initially that seems to have resolved since a urinalysis was obtained and it did not show pyuria but it was many epithelial cells and was contaminated. Blood cultures were obtained 2 and are no growth to date. Patient had influenza A and B antigen nasal swab both of which came back negative. A chest x-ray was obtained on 01/07/2018 and it showed no acute process. She was started on vancomycin and Unasyn we were asked to evaluate the patients make further recommendations. Recently in September patient was admitted and had Enterobacter UTI that was only resistant to Augmentin and cefazolin and intermediate to nitrofurantoin. In July patient had multidrug resistant Klebsiella pneumoniae UTI that was only susceptible to Zosyn, imipenem, ertapenem and resistant to everything else CC: Margo Peralta MD Past Med Surg Social Fam HX - Past Medical History Medical history: cancer, DVT, diabetes, GERD, hypertension Additional medical history: Blind Psychiatric history: no psych history - Past Surgical History Surgical History: cholecystectomy, hysterectomy, other Additional surgical history: BLADDER REMOVED R/T BLADDER CANCER (4yrs ago) - Social History Smoking Status: Former smoker Smokeless Tobacco Status: No Alcohol use: none Drug use: none - Family History Mother Family Member Ethnicity: Non- Living Status: Age at : 89 Cause of : UTI Hx Family Cardiac Disorders: Yes Hx Family Respiratory Disorders: No Hx Family Cancer: No Hx Family GI Disorders: No Hx Family Genitourinary Disorders: No Hx Family Endocrine Disorder: No Hx Family Musculoskeletal Disorders: No Hx Family Neuromuscular Disorders: No Hx Family Neurologic Disorders: No Hx Family HEENT Disorders: No Hx Family Autoimmune Disorders: No Hx Family Reproductive Disorders: No Hx Family Psychosocial Disorders: No Hx Family Medical Disorders: No Father Adopted: No Family Member Ethnicity: Non- Living Status: Age at : 81 Cause of : Diabetic Infection Hx Family Cardiac Disorders: No Hx Family Respiratory Disorders: No Hx Family Cancer: No Hx Family GI Disorders: No Hx Family Genitourinary Disorders: No Hx Family Endocrine Disorder: Yes Hx Family Musculoskeletal Disorders: No Hx Family Neuromuscular Disorders: No Hx Family Neurologic Disorders: No Hx Family HEENT Disorders: No Hx Family Autoimmune Disorders: No Hx Family Reproductive Disorders: No Hx Family Psychosocial Disorders: No Hx Family Medical Disorders: No Infectious Disease-CN:Meds Gabapentin [Neurontin] 600 mg PO HS 03/14/15 [History] Levothyroxine [Synthroid] 75 mcg PO MOTUWETHFRSA 03/14/15 [History] diazePAM [Valium] 2 mg PO HS 03/14/15 [History] metFORMIN [Glucophage] 500 mg PO BIDWM 03/14/15 [History] Ergocalciferol (VITAMIN D2) [Vitamin D2] 50,000 unit PO TU 07/20/17 [History] Levothyroxine [Synthroid] 150 mcg PO GOEL 07/20/17 [History] Omeprazole [PriLOSEC] 40 mg PO DAILY 07/20/17 [History] Sodium Chloride/Aloe Vera [Webb Saline Nasal Gel [place]] 1 spray NS TID PRN [History] Furosemide [Lasix] 40 mg PO DAILY PRN 01/07/18 [History] HYDROcodone/Acet 10/325 mg [[place] 10-325 mg] 1 tab PO Q4H PRN 01/07/18 [History] Ipratropium [place] 2 spr NS BID 01/07/18 [History] amLODIPine [Norvasc] 5 mg PO DAILY 01/07/18 [History] 3 Allergy/AdvReac Type Severity Reaction Status Date / Time Sulfa (Sulfonamide Allergy Rash Verified 03/14/15 20:04 Antibiotics) Review of systems: 10 point review of systems done, negative other for what mentioned in history of present illness. Patient does not have any urinary symptoms but keep in mind that the patient has a urostomy Exam - Constitutional Vitals: Temp Pulse Resp BP Pulse Ox 98.1 F 74 16 158/75 97 01/10/18 06:59 01/10/18 06:59 01/10/18 06:59 01/10/18 06:59 01/10/18 06:59 General appearance: no acute distress, no febrile Exam: Patient legally blind and cannot see - Head Head exam: Present: atraumatic, normocephalic - Eye Eye exam: Present: EOMI, PERRL, sclera anicteric - ENT ENT exam: Present: mucous membranes moist - Neck Neck exam: Present: full ROM. Absent: meningismus - Respiratory Respiratory exam: Present: CTAB, wheezes. Absent: accessory muscle use, rhonchi - Cardiovascular Cardiovascular exam: Present: RRR, +S1, +S2 - GI/Abdominal GI/Abdominal exam: Present: normal bowel sounds, soft. Absent: tenderness Additional comments: Urostomy tube intact. Urine appears yellow and clear - Extremities Exam Additional comments: There is erythema and tenderness and warmth to touch on the left lower extremity anteriorly about 15 cm in length. It is right over the bone there is no fluctuance. - Neurological Exam Neurological exam: Present: alert, oriented X3 - Psychiatric Psychiatric exam: Present: normal affect, normal mood - Skin Skin exam: Present: normal color. Absent: rash Infectious Disease CN: Results - Labs CBC & Chem 7: 01/10/18 04:59 01/10/18 04:59 Consult Discharge Plan - Plan Referrals: Jerome Bass MD [Primary Care Provider] -
[2018-01-10] MEDS: Cefepime HCl 2,000 MG in Water for inj. (sterile) 20 ML 20 ML IVP SCH ×2 (15:40→23:23)
--- NOTE | 2018-01-10 17:01 | Internal Med Progress Note ---
Hospitalist Progress Note - Encounter Date of Encounter: 01/10/18 Time of Encounter: 16:59 - Subjective Interval History: LLE erythema much improved. Pt still has bilateral LE edema L.R. She sates LLE pain also improved. She denies having fever during the night. She denies CP or SOB. - Exam Vitals: Temp Pulse Resp BP Pulse Ox 98.7 F 84 17 165/82 98 01/10/18 16:05 01/10/18 16:05 01/10/18 16:05 01/10/18 16:05 01/10/18 16:05 Exam: General appearance: Present: A&O X 3, no acute distress Exam: - Head Head exam: Present: atraumatic, normocephalic - Eye Eye exam: Present: PERRL, conjuntiva pink, sclera anicteric Pupils: Present: PERRL Additional comments: legally blind - Neck Neck exam general surgery: Present: supple, trachea midline. Absent: lymphadenopathy - Respiratory Respiratory exam: Present: CTAB. Absent: accessory muscle use, rales, rhonchi, wheezes - Cardiovascular Cardiovascular exam: Present: RRR, +S1, +S2. Absent: diastolic murmur, gallop, rubs, systolic murmur - GI/Abdominal GI/Abdominal exam: Present: normal bowel sounds, soft, no peritoneal signs. Absent: distended, tenderness - Extremities Exam Extremities exam: Present: warm, radial pulses palpable and symmetrical. Absent : calf tenderness, cyanotic, but positive pedal edema L> R. - Neurological Exam Neurological exam: Present: CN II-XII intact, oriented X3, no focal deficits. Absent: pronater drift, facial droop, speech deficit - Skin Skin exam: Present: dry, erythema Additional comments: LLE indurated, positive erythema extending to thigh, much improved but starting to become erythematous again. Pain with palpation. - Assessment and Plan (1) Cellulitis of left leg Current Visit: Yes Status: Acute Assessment and Plan: LLE indurated, positive erythema extending to thigh on admission swelling and redness significantly improved. Decreased pain with palpation. Though clincally improving 01/08/2018 but WBC 15.3 went up, and pt still running low grade temp. 01/09/2018 LLE developing erythema again and WBC up to 16.9. Pt still having low grade temp. Blood culture pending. Will continue Vanc and DC Unasyn for now. Started cefepime instead of Merrem. Appreciate ID assistance with antibiotic therapy (2) Type 2 diabetes mellitus Current Visit: No Status: Chronic Assessment and Plan: On Metformin. Will hold due to possible MELVIN/CKD vs CKd. Will place on basal and SSI and monitor glucose. (3) History of DVT of lower extremity Current Visit: No Status: Chronic Assessment and Plan: Pt states she was diagnosed with superficial DVT hece wy she was not on anticoagulation. B/L dopplers negative for DVT. (4) Acute kidney injury Current Visit: Yes Status: Acute Assessment and Plan: Resolved with IVF. Cr 0.56. Urine appears normal. Hx of bladder CA so has nephrostomy tube. (5) Fever Current Visit: Yes Status: Acute Assessment and Plan: Resolving. (6) Edema Current Visit: Yes Status: Acute Assessment and Plan: LE slowly improving. On Lasix 40 mg PO QD. Echo showed eF 60% and mild Pulm HTN. Echo EV/EV echocardiogram Impressions: LVEF 60%. Normal LV chamber size, wall thickness and function. Mild left ventricular diastolic dysfunction. Normal right ventricular structure and function. Mild mitral regurgitation. Mild pulmonary hypertension. Left Ventricular Wall Motion: Rest Echo Findings All wall segments showed normal motion DVT Prophylaxis: heparin - Summary of Assessment and Plan Summary of Assessment and Plan: Ms. Pruett is a 77 year old female with past medical history of bladder CA s/p post resection (no chemo/radiation) ,DM-type II, Hx DVT, MELVIN, recurrent UTI who presents with fever. Pt states while she was [place] [facility] 01[place]2018 she developed chills. She states she assumed it was the air conditioning in [place] [facility]. States when she got home shills persisted so she checked her temp and it 102. Pt states she had chills all night , hence why she presented to the ED to be evaluated Pt is clinically/legally blind and did not note that her LLE was red and swollen. She does complain of pain of LLE with palpation. - Time Spent with Patient Total time spent is greater than 50% in coordination of care (as documented) at patient's floor/unit and/or counseling patient: Plan of Care Discussed with: patient Internal Medicine: Result - Labs CBC & Chem 7: 01/10/18 04:59 01/10/18 04:59 Labs: Short CBC 01/10/18 Range/Units 04:59 WBC 14.3 H (4.3-11.1) K/mcL Hgb 11.1 L (11.5-15.4) g/dL Hct 35.5 (35.3-44.9) % Plt Count 204 (140-400) K/mcL BMP 01/10/18 04:59 Sodium 139 Potassium 3.1 L Chloride 107 Carbon Dioxide 23 BUN 8 Creatinine 0.56 L Glucose 99 Calcium 8.5 L - ABG Interpretation ABG results: PT/INR, D-dimer PT 17.0 Seconds (9.4-12.1) H 01/07/18 14:05 Consult Discharge Plan - Plan Referrals: Jerome Bass MD [Primary Care Provider] - (2) Type 2 diabetes mellitus 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
[2018-01-10] MEDS: Gabapentin 300 MG CAPSULE PO SCH (19:51)
[2018-01-10] MEDS: diazePAM 2 MG TABLET PO SCH (19:51)
[2018-01-10] MEDS: Insulin DETEMIR 100 UNIT/ML X5UNITS SQ SCH (20:49)
[2018-01-11] MEDS: *HR* HYDROcodone/Acet 10/325 mg TABLET PO PRN ×3 (02:26→15:03)
[2018-01-11] MEDS: *HR* Heparin 5,000 UNIT/ML VIAL SQ SCH ×2 (05:25→17:06)
[2018-01-11 07:02] LABS: Hematocrit 40.1 % (35.3-44.9); Hemoglobin 12.4 g/dL (11.5-15.4); Mean Corpuscular HGB Conc 30.9 g/dL (31.6-35.5); Mean Corpuscular Hemoglobin 29.3 pg (28.0-33.3); Mean Corpuscular Volume 94.8 fL (83.0-100.0); Platelet Count 201 K/mcL (140-400); Red Blood Count 4.23 M/mcL (3.82-4.97); Red Cell Distribution Width 15.4 % (11.5-14.5)
[2018-01-11 07:16] LABS: BUN/Creatinine Ratio 16 (6-26); Blood Urea Nitrogen 9 mg/dL (8-23); Calcium 8.9 mg/dL (8.6-10.3); Carbon Dioxide 23 mEq/L (23-29); Chloride 103 mEq/L (98-107); Glucose 73 mg/dL (70-105); Osmolality,Calculated 283 (280-300); Potassium 2.9 mEq/L (3.5-5.1); Sodium 138 mEq/L (136-145); eGFR For Non-African Americans > 60 (> 60)
[2018-01-11] MEDS: Cefepime HCl 2,000 MG in Water for inj. (sterile) 20 ML 20 ML IVP SCH ×2 (08:02→16:01)
[2018-01-11] MEDS: Furosemide 40 MG TABLET PO SCH (08:02)
[2018-01-11] MEDS: amLODIPine 5 MG TABLET PO SCH (08:02)
[2018-01-11] MEDS: Insulin LISPRO 300 UNITS/3 ML VIAL SQ SCH ×3 (08:11→16:44)
[2018-01-11 10:19] LABS: Magnesium 1.8 mg/dL (1.6-2.6)
--- NOTE | 2018-01-11 12:16 | Infectious Disease Progress No ---
Date of Encounter: 01/11/18 Time of Encounter: 09:55 - Assessment and Plan (1) Sepsis Current Visit: Yes Status: Acute The patient had 2 sepsis criteria on admission. Likely secondary cellulitis of the left lower extremity. Improved. Blood cell count has normalized. She has been afebrile. Blood cultures drawn 01/07/18 are no growth to date 2 sets. Qualifiers: Sepsis type: sepsis due to unspecified organism Qualified Code(s): A41.9 - Sepsis, unspecified organism (2) Cellulitis Current Visit: Yes Status: Acute Location: Left lower extremity. Causative organism: Unclear. Etiology: Unclear. The patient denies any known trauma to the area. No imaging has been done on the extremity, but clinically, the patient appears markedly improved. There is a small area of redness to the anterior lower leg that persists, but otherwise the patient is doing well. Continue vancomycin IV. Pharmacy to dose. Goal trough approximately 15. (day 5 ) Continue cefepime 2 g, but switched to every 12 hour. (day 2 + Unasyn x 3 days). Duration of treatment depends on the clinical picture, but likely a total of 14 days. Can likely switch to PO antibiotics when ready for discharge, recommend doxycycline 100mg PO BID and Augmentin 875mg PO BID. Monitor renal function and for drug toxicity and dose-adjust antibiotics. Qualifiers: Site of cellulitis: extremity Site of cellulitis of extremity: lower extremity Laterality: right Qualified Code(s): L03.115 - Cellulitis of right lower limb (3) Acute kidney injury Current Visit: Yes Status: Acute Likely secondary to sepsis. Resolved. (4) Legally blind Current Visit: Yes Status: Acute (5) Type 2 diabetes mellitus Current Visit: No Status: Chronic Recommend aggressive glucose monitoring and control to promote healing and prevent reinfection. Management per the primary team. 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 No acute events noted overnight. Patient states that overall she thinks her leg feels better. Due to her blindness, she is unable to see it, but does state that it does feel better. She denies any fevers or chills or rigors. Denies any chest pain, shortness of breath, or cough. Denies any nausea, vomiting, diarrhea, or constipation. She has a chronic urostomy that has been draining clear yellow urine without a problem. She denies any abdominal pain or urinary complaints. She states her appetite is okay. She denies any oral thrush or new skin lesions. Infect Dis PN-Objective Data - Labs CBC & Chem 7: 01/11/18 06:15 01/11/18 15:48 Exam - Constitutional Vitals: Temp Pulse Resp BP Pulse Ox 98.2 F 81 18 181/90 98 01/11/18 11:15 01/11/18 11:15 01/11/18 11:15 01/11/18 11:15 01/11/18 11:15 General appearance: average body habitus, cooperative, no acute distress - Head Head exam: Present: atraumatic, normal inspection, normocephalic - Eye Additional comments: Conjunctivae clear. - ENT ENT exam: Present: mucous membranes moist - Neck Neck exam: Present: normal inspection - Respiratory Respiratory exam: Present: CTAB. Absent: rales, respiratory distress, rhonchi, wheezes - Cardiovascular Cardiovascular exam: Present: RRR, +S1, +S2 - GI/Abdominal GI/Abdominal exam: Present: normal bowel sounds, soft. Absent: distended, tenderness Additional comments: Urostomy noted to the right abdomen draining clear yellow urine. Collection appliance is intact to straight drain byrne bag. - Extremities Exam Extremities exam: Present: pedal edema (1+ left lower extremity.). Absent: joint swelling, normal inspection (Mild erythema noted to the anterior aspect of the left lower leg.), tenderness - Neurological Exam Neurological exam: Present: alert, oriented X3, no focal deficits - Psychiatric Psychiatric exam: Present: normal affect, normal mood - Skin Skin exam: Present: dry, intact, normal color, warm Consult Discharge Plan - Plan Instructions: Cellulitis (DC), Hypokalemia (GEN) Referrals: Jerome Bass MD [Primary Care Provider] - (Web-requested) Prescriptions: Amoxicillin/Clavulanate [Augmentin] 875 mg PO BIDWM 14 Days #28 tablet Doxycycline 100 mg PO BID 14 Days #28 capsule Potassium Chloride 20 meq PO DAILY 30 Days #30 tab.er.prt - Attending Attestation I examined this patient and my medical decision-making was reviewed with the Resident Physician. I agree with the documented findings, disposition and treatment plan as described except to the extent set forth below.
--- NOTE | 2018-01-11 15:47 | Discharge Summary ---
- NOTES TO OUTPATIENT PROVIDER Notes to Outpatient Provider: PCP in 5 to 7 days Orders not resulted at time of discharge: Pending orders 01/11/18 15:37 Potassium Stat Date of Encounter: 01/11/18 Time of Encounter: 15:38 - Discharge Diagnosis (1) Cellulitis of left leg Priority: Primary Status: Acute Assessment and Plan: LLE indurated, positive erythema extending to inner upper thigh on admission swelling and redness significantly improved. Decreased pain with palpation. Though clincally improving 01/08/2018 but WBC 15.3 went up, and pt still running low grade temp. 01/09/2018 LLE developing erythema again and WBC up to 16.9 and pt was still having low grade temp. Blood culture showing NGTD. Was on Vanc and DCed Unasyn 01/09/2018. Started cefepime 01/10/2018 instead of Merrem. Appreciate ID assistance with antibiotic therapy. Pt has bee afebrile past 48 hrs and WBC 8.0. ID recommending doxycycline 100mg PO BID and Augmentin 875mg PO BID. Monitor renal function and for drug toxicity and dose-adjust antibiotics. (2) Type 2 diabetes mellitus Priority: Secondary Status: Chronic Assessment and Plan: On Metformin but was on hold due to MELVIN. MELVIN resolved. May resume home medication. 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 (4) Fever Priority: Primary Status: Acute Qualifiers: Qualified Code(s): R50.9 - Fever, unspecified (5) Edema Priority: Secondary Status: Acute Assessment and Plan: LE slowly improving. On Lasix 40 mg PO QD. Echo showed eF 60% and mild Pulm HTN. Echo EV/EV echocardiogram Impressions: LVEF 60%. Normal LV chamber size, wall thickness and function. Mild left ventricular diastolic dysfunction. Normal right ventricular structure and function. Mild mitral regurgitation. Mild pulmonary hypertension. Left Ventricular Wall Motion: Rest Echo Findings All wall segments showed normal motion Qualifiers: Qualified Code(s): R60.9 - Edema, unspecified (6) Superficial thrombophlebitis Priority: Secondary Status: Acute Assessment and Plan: Pt states she was diagnosed with superficial thrombophlebitis hence why she was not on anticoagulation. B/L dopplers negative for DVT. Qualifiers: Qualified Code(s): I80.9 - Phlebitis and thrombophlebitis of unspecified site (7) Hypokalemia Priority: Primary Status: Acute Assessment and Plan: Replaced and will recheck . Likely due to Lasix. Adding K 20 mEq PO daily to dc home meds as pt is on lasix at home. (8) Legally blind Priority: Secondary Status: Acute Hospital course: Ms. Pruett is a 77 year old female with past medical history of bladder CA s/p post resection (no chemo/radiation) ,DM-type II, Hx DVT, MELVIN, recurrent UTI who presents with fever. Pt states while she was at [facility] 01/06/2018 she developed chills. She states she assumed it was the air conditioning in the [facility]. States when she got home shills persisted so she checked her temp and it 102. Pt states she had chills all night , hence why she presented to the ED to be evaluated Pt is clinically/legally blind and did not note that her LLE was red and swollen. She did complain of pain of LLE pain with palpation and states LLE usually larger than R. Discharge discussed with: patient - Time Spent with Patient Total time spent providing and/or coordinating discharge services: Greater than 30 minutes - Discharge Medications Prescriptions: Amoxicillin/Clavulanate [Augmentin] 875 mg PO BIDWM 14 Days #28 tablet Doxycycline 100 mg PO BID 14 Days #28 capsule Potassium Chloride 20 meq PO DAILY 30 Days #30 tab.er.prt Home Medications: Gabapentin [Neurontin] 600 mg PO HS 03/14/15 [History] Levothyroxine [Synthroid] 75 mcg PO MOTUWETHFRSA 03/14/15 [History] diazePAM [Valium] 2 mg PO HS 03/14/15 [History] metFORMIN [Glucophage] 500 mg PO BIDWM 03/14/15 [History] Ergocalciferol (VITAMIN D2) [Vitamin D2] 50,000 unit PO TU 07/20/17 [History] Levothyroxine [Synthroid] 150 mcg PO GOEL 07/20/17 [History] Omeprazole [PriLOSEC] 40 mg PO DAILY 07/20/17 [History] Sodium Chloride/Aloe Vera [[place] Saline Nasal Gel [place]] 1 spray NS TID PRN [History] Furosemide [Lasix] 40 mg PO DAILY PRN 01/07/18 [History] HYDROcodone/Acet 10/325 mg [[place] 10-325 mg] 1 tab PO Q4H PRN 01/07/18 [History] Ipratropium [place] 2 spr NS BID 01/07/18 [History] amLODIPine [Norvasc] 5 mg PO DAILY 01/07/18 [History] Amoxicillin/Clavulanate [Augmentin] 875 mg PO BIDWM 14 Days #28 tablet 01/11/18 [Rx] Doxycycline 100 mg PO BID 14 Days #28 capsule 01/11/18 [Rx] Potassium Chloride 20 meq PO DAILY 30 Days #30 tab.er.prt 01/11/18 [Rx] Allergies/Adverse Reactions: 3 Allergy/AdvReac Type Severity Reaction Status Date / Time Sulfa (Sulfonamide Allergy Rash Verified 03/14/15 20:04 Antibiotics) Date of admission: 01/11/18 11:11 Primary care physician: Jerome Bass MD Discharging clinician: Mackenzie Bingham Anticipated date of discharge: 01/11/18 - Constitutional Vitals: Temp Pulse Resp BP Pulse Ox 98.2 F 81 18 181/90 98 01/11/18 11:15 01/11/18 11:15 01/11/18 11:15 01/11/18 11:15 01/11/18 11:15 General appearance: Present: A&O X 3, no acute distress Exam: General appearance: Present: A&O X 3, no acute distress Exam: - Head Head exam: Present: atraumatic, normocephalic - Eye Eye exam: Present: PERRL, conjuntiva pink, sclera anicteric Pupils: Present: PERRL Additional comments: legally blind - Neck Neck exam general surgery: Present: supple, trachea midline. Absent: lymphadenopathy - Respiratory Respiratory exam: Present: CTAB. Absent: accessory muscle use, rales, rhonchi, wheezes - Cardiovascular Cardiovascular exam: Present: RRR, +S1, +S2. Absent: diastolic murmur, gallop, rubs, systolic murmur - GI/Abdominal GI/Abdominal exam: Present: normal bowel sounds, soft, no peritoneal signs. Absent: distended, tenderness - Extremities Exam Extremities exam: Present: warm, radial pulses palpable and symmetrical. Absent : calf tenderness, cyanotic, but positive pedal edema L> R. - Neurological Exam Neurological exam: Present: CN II-XII intact, oriented X3, no focal deficits. Absent: pronater drift, facial droop, speech deficit - Skin Skin exam: Present: dry, erythema Additional comments: LLE indurated, positive erythema extending to thigh, much improved but starting to become erythematous again. Pain with palpation. - Patient Status Disposition: Home, Self-Care Condition: Good Overall status at discharge: patient is progressing back to baseline - Discharge Instructions Instructions: Cellulitis (DC), Hypokalemia (GEN) Follow Up With: Jerome Bass MD [Primary Care Provider] - (Web-requested) - Diet and Activity Activity: increase activity as tolerated Diet: diabetic diet
[2018-01-11 15:55] VITALS: BP 188/77
[2018-01-11] MEDS ORDERED: Aminoglycoside Consult 1 EACH MC ONE (18:47)
== END 2018-01-11 18:48 | disposition home or self-care (01) | DRG 872 ==
LOC: EMEROOARM 13:58 → 2ANU 13:58
PROVIDERS: ADMIT Family Medicine; ATTEND Family Medicine

== ENCOUNTER 2018-10-04 17:54 | Inpatient (IN) ==
--- NOTE | 2018-10-04 18:39 | Emergency Department Note ---
Disposition Clinical Impression: Cellulitis Disposition: Admitted As Inpatient Condition: Fair Referrals: NONE,PCP [Primary Care Provider] - Forms: ED Satisfaction Letter Time of Disposition: 20:28 SOB HPI - General Chief Complaint: ED Shortness of Breath/Dyspnea Stated Complaint: Leg swelling Time Seen by Provider: 10/04/18 18:04 Source: patient, EMS Limitations: no limitations - History of Present Illness 78-year-old female presents to the emergency room with left lower extremity swelling. Patient states been ongoing for last couple of days, she received discontinue her Lasix. The patient complains of painful left lower extremity. She denies any significant fevers. The patient states that at times she feels s omewhat out of it. The patient states that she is having moderate pain in the left lower extremity, worse when you put pressure on it. Patient denies any chest pain, she does complain of some shortness of breath. Patient denies any cough or congestion. The patient does not know if she is running a fever, she does not have a thermometer at home, she is also legally blind. The patient denies any severe abdominal pain. She denies any back pain. The patient denies any other complaints. She has had no headache. - Related Data Home Medications Medication Instructions Recorded Confirmed Gabapentin [Neurontin] 600 mg PO HS 03/14/15 01/07/18 Levothyroxine [Synthroid] 75 mcg PO MOTUWETHFRSA 03/14/15 01/07/18 diazePAM [Valium] 2 mg PO HS 03/14/15 01/07/18 metFORMIN [Glucophage] 500 mg PO BIDWM 03/14/15 01/07/18 Ergocalciferol (VITAMIN D2) 50,000 unit PO TU 07/20/17 01/07/18 [Vitamin D2] Levothyroxine [Synthroid] 150 mcg PO GOEL 07/20/17 01/07/18 Omeprazole [PriLOSEC] 40 mg PO DAILY 07/20/17 01/07/18 Sodium Chloride/Aloe Vera [[place] 1 spray NS TID PRN 07/20/17 01/07/18 Saline Nasal Gel [place]] Furosemide [Lasix] 40 mg PO DAILY PRN 01/07/18 01/07/18 HYDROcodone/Acet 10/325 mg [[place] 1 tab PO Q4H PRN 01/07/18 01/07/18 10-325 mg] Ipratropium [place] 2 spr NS BID 01/07/18 01/07/18 amLODIPine [Norvasc] 5 mg PO DAILY 01/07/18 01/07/18 Previous Rx's Medication Instructions Recorded Amoxicillin/Clavulanate [Augmentin] 875 mg PO BIDWM 14 Days #28 tablet 01/11/18 Doxycycline 100 mg PO BID 14 Days #28 capsule 01/11/18 Potassium Chloride 20 meq PO DAILY 30 Days #30 01/11/18 tab.er.prt Allergies Allergy/AdvReac Type Severity Reaction Status Date / Time Sulfa (Sulfonamide Allergy Rash Verified 03/14/15 20:04 Antibiotics) Review of Systems: As mentioned per history of present illness and as follows. Constitutional: Negative for chills or fever HENT: Negative for sore throat. Eyes: Negative for visual disturbance Respiratory: Positive for shortness of breath. Cardiovascular: Negative for palpitations. Gastrointestinal: Negative for abdominal pain Genitourinary: Negative for dysuria Musculoskeletal: Negative for back pain. Skin: Negative for rash. Neurological: Negative for focal weakness Psychiatric/Behavioral: Negative for depression Past Medical History - Past Medical History Medical history: Reports: cancer, DVT, diabetes, GERD, hypertension Surgical history: Reports: cholecystectomy, hysterectomy, other Psychiatric history: Reports: no psych history - Social History Smoking Status: Former smoker Smokeless Tobacco Status: No Alcohol use: Reports: none Drug use: Reports: none Physical Exam PHYSICAL EXAM Constitutional: Well developed, Well nourished, No acute distress, Non-toxic appearance. HENT: Normocephalic, Atraumatic, Bilateral external ears normal, Oropharynx moist, No oral exudates, Nose normal. Neck- Normal range of motion, No tenderness, Supple. Cardiovascular: Regular rate and rhythm without clicks, rubs, gallops or murmurs. Respiratory: Normal breath sounds, No respiratory distress, No wheezing, r honchi, or crackles. GI: Soft, nontender, patient has an ostomy in place. no evidence of guarding or peritoneal signs. Bowel sounds are active. Musculoskeletal: Good range of motion in all major joints. Tenderness is especially noted over the left lower extremity. This is especially over the left mid to distal tibial region. Patient also has tenderness to the left foot Integument: Warm, Dry, swelling is noted to the left leg on examination, the patient does have a +2 to cells. His pulse to the left foot. The patient has erythema that extends from the left foot up to the left knee on examination. Neurologic: Alert & oriented x 3, Normal sensory function, No focal deficits noted. CN II-XII grossly intact. - General Limitations: no limitations General appearance: alert, in no apparent distress Course Vital Signs Temperature 99.3 F 10/04/18 17:59 Pulse Rate 76 10/04/18 17:59 Respiratory Rate 18 10/04/18 17:59 Blood Pressure 166/75 10/04/18 17:59 O2 Sat by Pulse Oximetry 99 10/04/18 17:59 Temperature 99.3 F 10/04/18 17:59 Pulse Rate 76 10/04/18 17:59 Respiratory Rate 18 10/04/18 19:26 Blood Pressure 166/75 10/04/18 17:59 O2 Sat by Pulse Oximetry 98 10/04/18 19:26 Oxygen Delivery Oxygen Delivery Room Air Shortness of Breath/Dyspnea - [facility] Narrative Medical decision making narrative: EKG was obtained that showed sinus rhythm 69 beats a minute, do not appreciate significant ST elevation or depression, T-wave inversion isolated to lead 3. MS and QT intervals within normal limits. Interpreted by myself. Patient has an elevated white count of 15,000 however she shows no evidence of septic shock. The patient was given IV antibiotics here in the emergency room. The patient is going to be admitted for presumed left lower extremity cellulitis. Patient has no other cardiac etiologies. The patient will be admitted in stable condition. The patient has no other evidence of infection except the left lower extremity. Patient does have an ostomy in place, the patient does have a urinalysis pending however this most likely will show contamination. Final impression 1. Left lower extremity cellulitis - Lab Data Result diagrams: 10/04/18 19:30 10/04/18 19:30 Lab Results 10/04/18 10/04/18 10/04/18 Range/Units 19:30 19:30 19:30 WBC 15.1 H (4.3-11.1) K/mcL RBC 3.69 L (3.82-4.97) M/mcL Hgb 11.0 L (11.5-15.4) g/dL Hct 34.8 L (35.3-44.9) % MCV 94.3 (83.0-100.0) fL MCH 29.8 (28.0-33.3) pg MCHC 31.6 (31.6-35.5) g/dL RDW 15.1 H (11.5-14.5) % Plt Count 281 (140-400) K/mcL MPV 8.8 L (9.4-12.4) fL Immature Gran % 0.7 (0-4) % Seg Neutrophils % 81.6 % Lymphocytes % 11.5 % Monocytes % 5.7 % Eosinophils % 0.3 % Basophils % 0.2 % Neutrophils # 12.4 H (1.6-8.9) K/mcL Lymphocytes # 1.7 (0.6-4.6) K/mcL Monocytes # 0.9 (0.0-1.3) K/mcL Eosinophils # 0.0 (0.0-0.6) K/mcL Basophils # 0.0 (0.0-0.2) K/mcL Sodium 137 (136-145) mEq/L Potassium 3.7 (3.5-5.1) mEq/L Chloride 100 (98-107) mEq/L Carbon Dioxide 27 (23-29) mEq/L BUN 16 (8-23) mg/dL Creatinine 0.91 (0.60-1.20) mg/dL Est GFR ( Amer) > 60 (> 60) Est GFR (Non-Af Amer) 60 (> 60) BUN/Creatinine Ratio 18 (6-26) Glucose 127 H (70-105) mg/dL Calculated Osmolality 287 (280-300) Lactic Acid 0.9 (0.5-2.2) mmol/L Calcium 9.2 (8.6-10.3) mg/dL Total Bilirubin 0.5 (0.3-1.0) mg/dL Direct Bilirubin 0.1 (0.0-0.2) mg/dL Indirect Bilirubin 0.4 (0.0-1.2) mg/dL AST 13 (13-39) Units/L ALT 9 (7-52) Units/L Alkaline Phosphatase 64 (34-104) Units/L Troponin I < 0.03 (< 0.04) ng/mL B-Natriuretic Peptide (Less than 100) pg/mL Serum Total Protein 7.1 (6.4-8.9) g/dL Albumin 3.8 (3.5-5.7) g/dL Globulin 3.3 (2.4-3.5) g/dL Albumin/Globulin Ratio 1.2 (1.1-2.2) 10/04/18 Range/Units 19:30 WBC (4.3-11.1) K/mcL RBC (3.82-4.97) M/mcL Hgb (11.5-15.4) g/dL Hct (35.3-44.9) % MCV (83.0-100.0) fL MCH (28.0-33.3) pg MCHC (31.6-35.5) g/dL RDW (11.5-14.5) % Plt Count (140-400) K/mcL MPV (9.4-12.4) fL Immature Gran % (0-4) % Seg Neutrophils % % Lymphocytes % % Monocytes % % Eosinophils % % Basophils % % Neutrophils # (1.6-8.9) K/mcL Lymphocytes # (0.6-4.6) K/mcL Monocytes # (0.0-1.3) K/mcL Eosinophils # (0.0-0.6) K/mcL Basophils # (0.0-0.2) K/mcL Sodium (136-145) mEq/L Potassium (3.5-5.1) mEq/L Chloride (98-107) mEq/L Carbon Dioxide (23-29) mEq/L BUN (8-23) mg/dL Creatinine (0.60-1.20) mg/dL Est GFR ( Amer) (> 60) Est GFR (Non-Af Amer) (> 60) BUN/Creatinine Ratio (6-26) Glucose (70-105) mg/dL Calculated Osmolality (280-300) Lactic Acid (0.5-2.2) mmol/L Calcium (8.6-10.3) mg/dL Total Bilirubin (0.3-1.0) mg/dL Direct Bilirubin (0.0-0.2) mg/dL Indirect Bilirubin (0.0-1.2) mg/dL AST (13-39) Units/L ALT (7-52) Units/L Alkaline Phosphatase (34-104) Units/L Troponin I (< 0.04) ng/mL B-Natriuretic Peptide 95 (Less than 100) pg/mL Serum Total Protein (6.4-8.9) g/dL Albumin (3.5-5.7) g/dL Globulin (2.4-3.5) g/dL Albumin/Globulin Ratio (1.1-2.2)
[2018-10-04 19:42] LABS: Basophils % 0.2 %; Eosinophils % 0.3 %; Hematocrit 34.8 % (35.3-44.9); Immature Granulocytes % 0.7 % (0-4); Lymphocytes # 1.7 K/mcL (0.6-4.6); Lymphocytes % 11.5 %; Mean Corpuscular HGB Conc 31.6 g/dL (31.6-35.5); Mean Corpuscular Hemoglobin 29.8 pg (28.0-33.3); Mean Corpuscular Volume 94.3 fL (83.0-100.0); Mean Platelet Volume 8.8 fL (9.4-12.4); Monocytes # 0.9 K/mcL (0.0-1.3); Monocytes % 5.7 %; Neutrophils # 12.4 K/mcL (1.6-8.9); Platelet Count 281 K/mcL (140-400); Red Blood Count 3.69 M/mcL (3.82-4.97); Red Cell Distribution Width 15.1 % (11.5-14.5); Segmented Neutrophils % 81.6 %; White Blood Count 15.1 K/mcL (4.3-11.1)
[2018-10-04] MEDS ORDERED: Piperacillin/Tazobactam 3.375 GM in 0.9 % Sodium Chloride Mini Bag 100 ML IVPB ONE (19:46)
[2018-10-04 20:04] LABS: Alanine Aminotransferase 9 Units/L (7-52); Albumin 3.8 g/dL (3.5-5.7); Albumin/Globulin Ratio 1.2 (1.1-2.2); Alkaline Phosphatase 64 Units/L (34-104); Aspartate Amino Transferase 13 Units/L (13-39); BUN/Creatinine Ratio 18 (6-26); Bilirubin,Direct 0.1 mg/dL (0.0-0.2); Bilirubin,Indirect 0.4 mg/dL (0.0-1.2); Bilirubin,Total 0.5 mg/dL (0.3-1.0); Blood Urea Nitrogen 16 mg/dL (8-23); Calcium 9.2 mg/dL (8.6-10.3); Carbon Dioxide 27 mEq/L (23-29); Chloride 100 mEq/L (98-107); Globulin 3.3 g/dL (2.4-3.5); Glucose 127 mg/dL (70-105); Osmolality,Calculated 287 (280-300); Potassium 3.7 mEq/L (3.5-5.1); Sodium 137 mEq/L (136-145); Total Protein 7.1 g/dL (6.4-8.9); Troponin I < 0.03 ng/mL (< 0.04); eGFR For African Americans > 60 (> 60); eGFR For Non-African Americans 60 (> 60)
[2018-10-04] MEDS ORDERED: Acetaminophen 325 MG TABLET PO PRN (23:53)
[2018-10-04] MEDS ORDERED: Dextrose Gel 15 GM/37.5 ML TUBE PO PRN ×2 (23:53)
[2018-10-04] MEDS ORDERED: Naloxone 0.4 MG/ML INJ IVP PRN (23:53)
[2018-10-04] MEDS ORDERED: *HR* Dextrose 50 % in Water (Syg) 50 ML SYRINGE IVP PRN (23:53)
[2018-10-04] MEDS ORDERED: D5% in Water 1,000 ML IVC PRN (23:53)
[2018-10-05] MEDS ORDERED: *HR* HYDROcodone/Acet 10/325 mg TABLET PO SCH
[2018-10-05 01:00] LABS: Basophils % 0.3 %; Eosinophils # 0.1 K/mcL (0.0-0.6); Eosinophils % 0.4 %; Hematocrit 32.4 % (35.3-44.9); Hemoglobin 10.3 g/dL (11.5-15.4); Immature Granulocytes % 0.5 % (0-4); Lymphocytes # 1.1 K/mcL (0.6-4.6); Lymphocytes % 7.6 %; Mean Corpuscular HGB Conc 31.8 g/dL (31.6-35.5); Mean Corpuscular Hemoglobin 29.3 pg (28.0-33.3); Mean Platelet Volume 9.3 fL (9.4-12.4); Monocytes # 0.8 K/mcL (0.0-1.3); Monocytes % 5.8 %; Platelet Count 245 K/mcL (140-400); Red Blood Count 3.52 M/mcL (3.82-4.97); Red Cell Distribution Width 15.3 % (11.5-14.5); Segmented Neutrophils % 85.4 %
[2018-10-05] MEDS: 0.9 % Sodium Chloride 1,000 ML IVC SCH ×2 (01:01→14:30)
[2018-10-05] MEDS: *HR* HYDROcodone/Acet 10/325 mg TABLET PO PRN ×4 (01:02→17:40)
[2018-10-05] MEDS: *HR* Heparin 5,000 UNIT/ML VIAL SQ SCH ×3 (01:02→17:40)
[2018-10-05 01:08] LABS: INR 1.3; Prothrombin Time 14.7 Seconds (9.4-12.1)
[2018-10-05 01:11] LABS: Activated Partial Thrombo Time 28.2 Seconds (26.0-36.0)
[2018-10-05 01:22] LABS: Alanine Aminotransferase 8 Units/L (7-52); Albumin 3.2 g/dL (3.5-5.7); Albumin/Globulin Ratio 1.1 (1.1-2.2); Alkaline Phosphatase 58 Units/L (34-104); Aspartate Amino Transferase 12 Units/L (13-39); BUN/Creatinine Ratio 15 (6-26); Bilirubin,Total 0.5 mg/dL (0.3-1.0); Blood Urea Nitrogen 13 mg/dL (8-23); Calcium 8.5 mg/dL (8.6-10.3); Carbon Dioxide 25 mEq/L (23-29); Chloride 104 mEq/L (98-107); Globulin 2.9 g/dL (2.4-3.5); Glucose 193 mg/dL (70-105); Magnesium 1.5 mg/dL (1.6-2.6); Osmolality,Calculated 289 (280-300); Potassium 3.6 mEq/L (3.5-5.1); Sodium 137 mEq/L (136-145); Total Protein 6.1 g/dL (6.4-8.9); eGFR For African Americans > 60 (> 60); eGFR For Non-African Americans > 60 (> 60)
--- NOTE | 2018-10-05 03:57 | Internal Med History&Physical ---
Date of Encounter: 10/04/18 Time of Encounter: 23:40 Internal Medicine - H&P: HPI Chief complaint: left leg cellulitis Admitted From: Emergency Dept Plans for Post Hospital Care: Home History of present illness: Ms. Pruett is a 78 year old female presents to the ER tonight under the advice of her home health care nurse. Patient lives alone and is blind. She has a home health attending ambulatory care who comes and checks on her several times per week. She was noted to have some redness, warmth, and cellulitis in her left leg last few days. She been on antibiotics with little improvement. Today, her home health care nurse noted that it was markedly worse and recommended she come the ER. She therefore came to ER where she was seen, evaluated, started on antibiotics, and admitted to hospitalist service. Upon my assessment of the patient, patient confirms above history. She denies any trauma or injury to her leg. She is diabetic, but she is only on oral agents for diabetes. She states her glucose normally runs about 100-130. 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 She functions well at home and takes care of herself. When she goes grocery shopping, she has assistance from friends and family members. She denies any blood clots or injury to her leg. She had been on Augmentin and doxycycline without relief and now presents for inpatient treatment. Past Med Surg Social Fam HX - Past Medical History Attestation: Yes The following information was validated with the patient. Source: patient, old records reviewed Medical history: cancer, DVT, diabetes, GERD, hypertension Additional medical history: Bladder cancer. Blind Psychiatric history: no psych history - Past Surgical History Surgical History: cholecystectomy, hysterectomy, other Additional surgical history: BLADDER REMOVED R/T BLADDER CANCER (4yrs ago). Ileostomy - Social History Smoking Status: Former smoker Smokeless Tobacco Status: No Alcohol use: none Drug use: none Current living situation: Home - Independent Activity Level: Independent ambulation, Very active Recent Out of Country Travel Within the Last 8 Weeks: No - Family History Mother Family Member Ethnicity: Non- Living Status: Hx Family Cardiac Disorders: Yes Hx Family Respiratory Disorders: No Hx Family Cancer: No Hx Family GI Disorders: No Hx Family Endocrine Disorder: No Hx Family Neuromuscular Disorders: No Hx Family Neurologic Disorders: No Hx Family HEENT Disorders: No Hx Family Autoimmune Disorders: No Father Adopted: No Family Member Ethnicity: Non- Living Status: Hx Family Cardiac Disorders: No Hx Family Respiratory Disorders: No Hx Family Cancer: No Hx Family GI Disorders: No Hx Family Endocrine Disorder: Yes Hx Family Neuromuscular Disorders: No Hx Family Neurologic Disorders: No Hx Family HEENT Disorders: No Hx Family Autoimmune Disorders: No Internal Medicine - H&P: Meds Gabapentin [Neurontin] 600 mg PO HS 03/14/15 [History] Levothyroxine [Synthroid] 75 mcg PO MOTUWETHFRSA 03/14/15 [History] diazePAM [Valium] 2 mg PO HS 03/14/15 [History] metFORMIN [Glucophage] 500 mg PO BIDWM 03/14/15 [History] Ergocalciferol (VITAMIN D2) [Vitamin D2] 50,000 unit PO TU 07/20/17 [History] Levothyroxine [Synthroid] 150 mcg PO GOEL 07/20/17 [History] Omeprazole [PriLOSEC] 40 mg PO DAILY 07/20/17 [History] Sodium Chloride/Aloe Vera [[place] Saline Nasal Gel [place]] 1 spray NS TID PRN 07/20/17 [History] Furosemide [Lasix] 40 mg PO DAILY PRN 01/07/18 [History] HYDROcodone/Acet 10/325 mg [[place] 10-325 mg] 1 tab PO Q4H PRN 01/07/18 [History] Ipratropium [place] 2 spr NS BID 01/07/18 [History] amLODIPine [Norvasc] 5 mg PO DAILY 01/07/18 [History] Amoxicillin/Clavulanate [Augmentin] 875 mg PO BIDWM 14 Days #28 tablet 01/11/18 [Rx] Doxycycline 100 mg PO BID 14 Days #28 capsule 01/11/18 [Rx] Potassium Chloride 20 meq PO DAILY 30 Days #30 tab.er.prt 01/11/18 [Rx] Allergy/AdvReac Type Severity Reaction Status Date / Time Sulfa (Sulfonamide Allergy Rash Verified 03/14/15 20:04 Antibiotics) - Constitutional Constitutional: fever(s), no chills, no night sweats - EENT Eyes: loss of vision (chronic) Ears: no ear pain, no tinnitus Nose, mouth and throat: no nasal congestion, no sore throat - Cardiovascular Cardiovascular ROS IM: no chest pain, no dyspnea - Respiratory Respiratory: no cough, no chest congestion - Gastrointestinal Gastrointestinal: no abdominal pain, no diarrhea, no hematemesis, no hematochezia, no melena, no nausea, no vomiting - Genitourinary Genitourinary: no dysuria, no flank pain - Musculoskeletal Musculoskeletal ROS IM: no arthralgias, no back pain - Integumentary Integumentary IM: erythema (left leg), no rash, no jaundice - Neurological Neurological ROS: no dizziness, no focal weakness, no frequent falls, no headache(s) - Psychiatric Psychiatric: no anxiety, no depression - Endocrine Endocrine IM: no polydipsia, no polyuria - Allergic/Immunologic Allergic/Immunologic: no GI upset with certain foods - Constitutional Vitals: Temp Pulse Resp BP Pulse Ox 98.2 F 89 14 144/74 98 10/04/18 22:36 10/04/18 22:36 10/04/18 22:36 10/04/18 22:57 10/04/18 22:36 General appearance: Present: cooperative, A&O X 3, pleasant, no acute distress, answers questions appropriately Exam: see below - Head Head exam: Present: atraumatic, normal inspection - Eye Eye exam: Present: EOMI. Absent: scleral icterus - ENT ENT exam: Present: mucous membranes dry, normal exam, normal oropharynx - Neck Neck exam general surgery: Present: full ROM, supple, trachea midline. Absent: tenderness, nuchal rigidity, thyromegaly - Respiratory Respiratory exam: Present: CTAB. Absent: chest wall tenderness, rales, rhonchi, wheezes - Cardiovascular Cardiovascular exam: Present: distant heart sounds, +S1, +S2. Absent: diastolic murmur, systolic murmur - GI/Abdominal GI/Abdominal exam: Present: normal bowel sounds, soft. Absent: guarding, hepatomegaly, mass, rebound, splenomegaly, tenderness Additional comments: urostomy in place - Extremities Exam Extremities exam: Present: full ROM, normal capillary refill, warm, radial pulses palpable and symmetrical. Absent: calf tenderness, joint swelling Additional comments: left leg red, warm, mildly tender, and swollen from ankle ot above knee -- c/w cellulitis - Back Exam Back exam: Absent: CVA tenderness (L), CVA tenderness (R) - Neurological Exam Neurological exam: Present: alert, oriented X3, no focal deficits, strengths equal and symetr throughout - Psychiatric Psychiatric exam: Present: normal affect, normal mood - Skin Skin exam: Present: dry, intact, warm Internal Med - H&P Results - Labs CBC & Chem 7: 10/05/18 00:42 10/05/18 00:42 Labs: Short CBC 10/04/18 10/05/18 Range/Units 19:30 00:42 WBC 15.1 H 14.0 H (4.3-11.1) K/mcL Hgb 11.0 L 10.3 L (11.5-15.4) g/dL Hct 34.8 L 32.4 L (35.3-44.9) % Plt Count 281 245 (140-400) K/mcL Neutrophils # 12.4 H 12.0 H (1.6-8.9) K/mcL BMP 10/04/18 10/05/18 19:30 00:42 Sodium 137 137 Potassium 3.7 3.6 Chloride 100 104 Carbon Dioxide 27 25 BUN 16 13 Creatinine 0.91 0.84 Glucose 127 H 193 H Calcium 9.2 8.5 L Cardiac Enzymes 10/04/18 Range/Units 19:30 Troponin I < 0.03 (< 0.04) ng/mL Liver Function 10/04/18 10/05/18 Range/Units 19:30 00:42 Total Bilirubin 0.5 0.5 (0.3-1.0) mg/dL Direct Bilirubin 0.1 (0.0-0.2) mg/dL AST 13 12 L (13-39) Units/L ALT 9 8 (7-52) Units/L Alkaline Phosphatase 64 58 (34-104) Units/L Albumin 3.8 3.2 L (3.5-5.7) g/dL - Impressions ITS Impressions Chest X-Ray 10/04/18 18:09 IMPRESSION: No acute pulmonary disease. Multifocal high density small nodules almost certainly reflect sequela from old granulomatous disease, stable compared with prior chest radiograph series. Calcific atherosclerotic disease aorta. D/ / Sarwat Antonio / Sarwat Antonio Interpreting Provider: Sarwat Antonio - Assessment and Plan (1) Cellulitis Current Visit: Yes Status: Acute Assessment and plan: 1. Blood cultures obtained. 2. Will continue Vancomycin and Zosyn and follow cultures and clinical response. 3. Will order DOpplers to rule out DVT -- low clinical suspicion. Qualifiers: Site of cellulitis: extremity Site of cellulitis of extremity: lower extremity Laterality: left Qualified Code(s): L03.116 - Cellulitis of left lower limb (2) Legally blind Current Visit: Yes Status: Chronic Assessment and plan: 1. Consult social service coordinator to assist with D/C planning. 2. Patient cares for herself in her home and lives independently. She may need assistance with outpatient treatment of her cellulitis upon discharge. (3) Type 2 diabetes mellitus Current Visit: Yes Status: Chronic Assessment and plan: 1. Hold Metformin. 2. Will order SSI and monitor glucose closely. 3. Adjust insulin dosing as necessary. Qualifiers: Diabetes mellitus ad terminal makeup operator insulin use: without penitentiary use Diabetes mellitus complication status: without complication Qualified Code(s): E11.9 - Type 2 diabetes mellitus without complications (4) DVT prophylaxis Current Visit: Yes Status: Acute Assessment and plan: 1. Heparin SQ.
[2018-10-05] MEDS: Piperacillin/Tazobactam 3.375 GM in 0.9 % Sodium Chloride Mini Bag 100 ML IVPB SCH ×2 (06:02→17:39)
[2018-10-05 07:41] LABS: Bilirubin,Urine Negative (Negative); Blood,Urine Negative (Negative); Clarity,Urine Clear (Clear); Color,Urine Yellow (Yellow); Glucose,Urine (UA) Normal (Normal); Ketones,Urine Negative (Negative); Leukocyte Esterase,Urine Small (Negative); Nitrite,Urine Negative (Negative); PH,Urine 6.5 pH Units (5.0-8.0); Protein,Urine Trace mg/dL (Neg-Trace); Specific Gravity,Urine 1.008 (1.010-1.025); Urobilinogen,Urine Normal (Normal)
[2018-10-05 07:53] LABS: Bacteria,Urine Few per hpf (None-Few); RBC,Urine 0-3 per hpf (0-3)
[2018-10-05] MEDS: Insulin LISPRO 300 UNITS/3 ML VIAL SQ SCH ×3 (10:26→17:38)
[2018-10-05] MEDS: amLODIPine 5 MG TABLET PO SCH (10:32)
--- NOTE | 2018-10-05 11:25 | Internal Med Progress Note ---
Hospitalist Progress Note - Encounter Date of Encounter: 10/05/18 Time of Encounter: 08:00 - Subjective Interval History: Patient was seen and examined at bedside. All questions answered. Pain is controlled. Reports that her left lower extremity is feeling somewhat better as compared to admission. After she was treated with antibiotics at home she re ports no. As per chart review home health care nurse had referred her to the emergency department as she had left lower extremity erythema and warmth and apparently she was on antibiotics however it was not improving. She denies fever, chills, prolonged immobilization. has been legally blind for a few years. tolerating by mouth diet. - Exam Vitals: Temp Pulse Resp BP Pulse Ox 98.4 F 70 18 109/67 97 10/05/18 08:06 10/05/18 08:06 10/05/18 08:06 10/05/18 08:06 10/05/18 08:06 Exam: General: Patient is alert, oriented, no acute distress, legally blind Head: atraumatic, normocephalic, Eye: normal appearance, PERRL, no scleral icterus, no conjunctival injection ENT: mucous membranes moist, normal external ear exam Neck: normal inspection, trachea midline, full ROM, no carotid bruits Chest: normal inspection, symmetric chest rise Respiratory: Good respiratory effort. Bilateral breath sounds are clear without wheezing, crackles, or rhonchi. Cardiovascular: Regular rate and rhythm. s1 and s2 No clicks, rubs, gallops, or murmors. Abdomen: Bowel sounds present normoactive x-4 quadrants. Abdomen is soft, nondistended. no Epigastric tenderness. No guarding or rebound. No orga nomegaly noted, obese musculoskeletal: Spontaneously moving all extremities. Has erythema and warmth along with petechiae from left foot all the way up to upper shins just below the knee area is marked, no calf tenderness Skin: warm, dry, intact. Neuro: Alert and oriented x3 , no focal deficit , legally blind Psych: Patient's affect is normal - Assessment and Plan (1) Cellulitis Current Visit: Yes Status: Acute Assessment and Plan: LLE cellulitis ( could not appreciate crepitus) ESR , CRP and CPK reports improvemnt with IV Abx - if leukcoytosis worsens and leukocytosis trends up consider CT of the LE DVT of the LLE prelim negative for DVT continue with IV vancomycin and zosyn will send MRSA swab and consider discontinuing vanc if negative follow blood cx (2) Type 2 diabetes mellitus Current Visit: Yes Status: Chronic Assessment and Plan: insulin sliding scla enad adjust as per finger sticks A1c in AM (3) Legally blind Current Visit: Yes Status: Chronic Assessment and Plan: Consulted director of social work to assist with D/C planning. PT/rehab assist with feeds (4) DVT prophylaxis Current Visit: Yes Status: Acute Assessment and Plan: Heparin SQ. - Time Spent with Patient Total time spent is greater than 50% in coordination of care (as documented) at patient's floor/unit and/or counseling patient: 25 - 35 minutes Plan of Care Discussed with: patient Internal Medicine: Result - Labs CBC & Chem 7: 10/05/18 00:42 10/05/18 00:42 Labs: Short CBC 10/04/18 10/05/18 Range/Units 19:30 00:42 WBC 15.1 H 14.0 H (4.3-11.1) K/mcL Hgb 11.0 L 10.3 L (11.5-15.4) g/dL Hct 34.8 L 32.4 L (35.3-44.9) % Plt Count 281 245 (140-400) K/mcL Neutrophils # 12.4 H 12.0 H (1.6-8.9) K/mcL BMP 10/04/18 10/05/18 19:30 00:42 Sodium 137 137 Potassium 3.7 3.6 Chloride 100 104 Carbon Dioxide 27 25 BUN 16 13 Creatinine 0.91 0.84 Glucose 127 H 193 H Calcium 9.2 8.5 L Cardiac Enzymes 10/04/18 Range/Units 19:30 Troponin I < 0.03 (< 0.04) ng/mL Liver Function 10/04/18 10/05/18 Range/Units 19:30 00:42 Total Bilirubin 0.5 0.5 (0.3-1.0) mg/dL Direct Bilirubin 0.1 (0.0-0.2) mg/dL AST 13 12 L (13-39) Units/L ALT 9 8 (7-52) Units/L Alkaline Phosphatase 64 58 (34-104) Units/L Albumin 3.8 3.2 L (3.5-5.7) g/dL Urine 10/05/18 Range/Units 05:49 Urine Color Yellow (Yellow) Urine Clarity Clear (Clear) Urine pH 6.5 (5.0-8.0) pH Units Ur Specific [place] 1.008 L (1.010-1.025) Urine Protein Trace (Neg-Trace) mg/dL Urine Glucose (UA) Normal (Normal) mg/dL - ABG Interpretation ABG results: PT/INR, D-dimer PT 14.7 Seconds (9.4-12.1) H 10/05/18 00:42 - Impressions Impressions Chest X-Ray 10/04/18 18:09 IMPRESSION: No acute pulmonary disease. Multifocal high density small nodules almost certainly reflect sequela from old granulomatous disease, stable compared with prior chest radiograph series. Calcific atherosclerotic disease aorta. D/ / Sarwat Antonio / Sarwat Antonio Interpreting Provider: Sarwat Antonio Consult Discharge Plan - Plan Referrals: NONE,PCP [Primary Care Provider] - (1) Cellulitis Qualifiers: Site of cellulitis: extremity Site of cellulitis of extremity: lower extremity Laterality: left Qualified Code(s): L03.116 - Cellulitis of left lower limb (2) Type 2 diabetes mellitus Qualifiers: Diabetes mellitus bed bug exterminator insulin use: without senior care use Diabetes mellitus complication status: without complication Qualified Code(s): E11.9 - Type 2 diabetes mellitus without complications
[2018-10-05 11:54] LABS: C-Reactive Protein 174 mg/L (Less than 10); Creatine Kinase 84 Units/L (30-223)
[2018-10-05] MEDS: Gabapentin 300 MG CAPSULE PO SCH (22:06)
[2018-10-05] MEDS: diazePAM 2 MG TABLET PO SCH (22:06)
[2018-10-06] MEDS: *HR* Heparin 5,000 UNIT/ML VIAL SQ SCH ×3 (02:32→16:59)
[2018-10-06] MEDS: Piperacillin/Tazobactam 3.375 GM in 0.9 % Sodium Chloride Mini Bag 100 ML IVPB SCH ×2 (02:33→08:27)
[2018-10-06 05:17] LABS: Hematocrit 32.7 % (35.3-44.9); Hemoglobin 10.3 g/dL (11.5-15.4); Mean Corpuscular HGB Conc 31.5 g/dL (31.6-35.5); Mean Corpuscular Hemoglobin 29.4 pg (28.0-33.3); Mean Corpuscular Volume 93.4 fL (83.0-100.0); Mean Platelet Volume 9.3 fL (9.4-12.4); Platelet Count 264 K/mcL (140-400); Red Cell Distribution Width 15.5 % (11.5-14.5); White Blood Count 10.7 K/mcL (4.3-11.1)
[2018-10-06] MEDS: amLODIPine 5 MG TABLET PO SCH (08:27)
[2018-10-06] MEDS: Insulin LISPRO 300 UNITS/3 ML VIAL SQ SCH ×3 (08:28→16:59)
[2018-10-06] MEDS: *HR* HYDROcodone/Acet 10/325 mg TABLET PO PRN ×4 (08:28→21:32)
[2018-10-06 08:29] LABS: Estimated Average Glucose 151 mg/dl
[2018-10-06] MEDS ORDERED: Aminoglycoside Consult 1 EACH MC ONE (09:29)
--- NOTE | 2018-10-06 11:20 | Internal Med Progress Note ---
Hospitalist Progress Note - Encounter Date of Encounter: 10/06/18 Time of Encounter: 08:00 - Subjective Interval History: hiwot was seen ad examined at bedside is doing much better today. LLE is feeling much better since admission. denies fever or chils, has had no loss of sensation or function of the left lower extremity all questions answered. tolerating Po diet and pain is controlled - Exam Vitals: Temp Pulse Resp BP Pulse Ox 98.0 F 62 14 168/81 97 10/06/18 07:24 10/06/18 07:24 10/06/18 07:24 10/06/18 07:24 10/06/18 07:24 Exam: General: Patient is alert, oriented, no acute distress, legally blind Head: atraumatic, normocephalic, Eye: normal appearance, PERRL, no scleral icterus, no conjunctival injection ENT: mucous membranes moist, normal external ear exam Neck: normal inspection, trachea midline, full ROM, no carotid bruits Chest: normal inspection, symmetric chest rise Respiratory: Good respiratory effort. Bilateral breath sounds are clear without wheezing, crackles, or rhonchi. Cardiovascular: Regular rate and rhythm. s1 and s2 No clicks, rubs, gallops, or murmors. Abdomen: Bowel sounds present normoactive x-4 quadrants. Abdomen is soft, nondistended. no Epigastric tenderness. No guarding or rebound. No organ omegaly noted, obese musculoskeletal: Spontaneously moving all extremities. Has erythema and warmth along with petechiae from left foot all the way up to upper shins just below the knee area is marked, no calf tenderness Skin: warm, dry, intact. Neuro: Alert and oriented x3 , no focal deficit , legally blind Psych: Patient's affect is normal - Assessment and Plan (1) Cellulitis Current Visit: Yes Status: Acute Assessment and Plan: LLE cellulitis ( could not appreciate crepitus) ESR 45, CRP pending and CPK 84 reports improvement with IV Abx - if leukcoytosis worsens and leukocytosis trends up consider CT of the LE DVT of the LLE negative for DVT continue with IV vancomycin and zosyn will send MRSA swab and consider discontinuing vanc if negative - nursing staff aware follow blood cx (2) Type 2 diabetes mellitus Current Visit: Yes Status: Chronic Assessment and Plan: insulin sliding scale and adjust as per finger sticks A1c 6.9 (3) Legally blind Current Visit: Yes Status: Chronic Assessment and Plan: Consulted addiction social worker to assist with D/C planning. PT/rehab assist with feeds (4) DVT prophylaxis Current Visit: Yes Status: Acute Assessment and Plan: Heparin SQ. - Time Spent with Patient Total time spent is greater than 50% in coordination of care (as documented) at patient's floor/unit and/or counseling patient: Internal Medicine: Result - Labs CBC & Chem 7: 10/06/18 04:25 10/05/18 00:42 Labs: Short CBC 10/06/18 Range/Units 04:25 WBC 10.7 (4.3-11.1) K/mcL Hgb 10.3 L (11.5-15.4) g/dL Hct 32.7 L (35.3-44.9) % Plt Count 264 (140-400) K/mcL BMP 10/05/18 00:42 Sodium 137 Potassium 3.6 Chloride 104 Carbon Dioxide 25 BUN 13 Creatinine 0.84 Glucose 193 H Calcium 8.5 L Liver Function 10/05/18 Range/Units 00:42 Total Bilirubin 0.5 (0.3-1.0) mg/dL AST 12 L (13-39) Units/L ALT 8 (7-52) Units/L Alkaline Phosphatase 58 (34-104) Units/L Albumin 3.2 L (3.5-5.7) g/dL - ABG Interpretation ABG results: PT/INR, D-dimer PT 14.7 Seconds (9.4-12.1) H 10/05/18 00:42 Consult Discharge Plan - Plan Referrals: NONE,PCP [Primary Care Provider] - (1) Cellulitis Qualifiers: Site of cellulitis: extremity Site of cellulitis of extremity: lower extremity Laterality: left Qualified Code(s): L03.116 - Cellulitis of left lower limb (2) Type 2 diabetes mellitus Qualifiers: Diabetes mellitus terminal press operator insulin use: without terminal press operator use Diabetes mellitus complication status: without complication Qualified Code(s): E11.9 - Type 2 diabetes mellitus without complications
[2018-10-06] MEDS ORDERED: Furosemide 40 MG TABLET PO PRN (17:15)
[2018-10-06] MEDS ORDERED: Doxycycline 100 MG CAPSULE PO SCH (21:00)
[2018-10-06] MEDS ORDERED: Cefdinir 300 MG CAPSULE PO SCH (21:00)
[2018-10-06] MEDS ORDERED: traZODone 50 MG TABLET PO SCH (21:00)
[2018-10-06] MEDS: diazePAM 2 MG TABLET PO SCH (21:32)
[2018-10-06] MEDS: Gabapentin 300 MG CAPSULE PO SCH (21:32)
[2018-10-07] MEDS: *HR* Heparin 5,000 UNIT/ML VIAL SQ SCH ×2 (01:29→09:42)
[2018-10-07] MEDS: *HR* HYDROcodone/Acet 10/325 mg TABLET PO PRN ×2 (03:13→11:37)
[2018-10-07 06:58] LABS: BUN/Creatinine Ratio 21 (6-26); Blood Urea Nitrogen 13 mg/dL (8-23); Calcium 8.5 mg/dL (8.6-10.3); Carbon Dioxide 25 mEq/L (23-29); Chloride 106 mEq/L (98-107); Glucose 96 mg/dL (70-105); Magnesium 1.7 mg/dL (1.6-2.6); Osmolality,Calculated 292 (280-300); Potassium 3.6 mEq/L (3.5-5.1); Sodium 141 mEq/L (136-145); eGFR For African Americans > 60 (> 60); eGFR For Non-African Americans > 60 (> 60)
[2018-10-07] MEDS: Insulin LISPRO 300 UNITS/3 ML VIAL SQ SCH ×2 (08:37→13:01)
[2018-10-07] MEDS: amLODIPine 5 MG TABLET PO SCH (09:42)
--- NOTE | 2018-10-07 12:12 | Discharge Summary ---
- NOTES TO OUTPATIENT PROVIDER Notes to Outpatient Provider: katie dawkins with PCP in one week to evaluate the Left lower extremity Orders not resulted at time of discharge: Pending orders 10/04/18 18:09 ECG 12 lead ECG [ECG] Stat 10/04/18 23:53 ECG 12 lead ECG [ECG] Routine 10/05/18 09:39 Culture,Blood [BC] Stat Date of Encounter: 10/07/18 Time of Encounter: 09:00 - Discharge Diagnosis (1) Cellulitis Priority: Primary Status: Acute Qualifiers: Site of cellulitis: extremity Site of cellulitis of extremity: lower extremity Laterality: left Qualified Code(s): L03.116 - Cellulitis of left lower limb (2) Type 2 diabetes mellitus Priority: Secondary Status: Chronic Qualifiers: Diabetes mellitus adjunct faculty for medical terminology insulin use: without adjunct faculty for medical terminology use Diabetes mellitus complication status: without complication Qualified Code(s): E11.9 - Type 2 diabetes mellitus without complications (3) Legally blind Priority: Secondary Status: Chronic (4) DVT prophylaxis Priority: Secondary Status: Acute Hospital course: " Ms. Pruett is a 78 year old [facility] under the advice of her home health care nurse. Patient lives alone and is blind. She has a home health restorative care technician who comes and checks on her several times per week. She was noted to have some redness, warmth, and cellulitis in her left leg last few days. She been on antibiotics with little improvement. Today, her home health care nurse noted that it was markedly worse and recommended she come the ER. She therefore came to ER where she was seen, evaluated, started on antibiotics, and admitted to hospitalist service. Upon my assessment of the patient, patient confirms above history. She denies any trauma or injury to her leg. She is diabetic, but she is only on oral agents for diabetes. She states her glucose normally runs about 100-130. 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 She functions well at home and takes care of herself. When she goes grocery shopping, she has assistance from friends and family members. She denies any blood clots or injury to her leg. She had been on Augmentin and doxycycline without relief and now presents for inpatient treatment." Patient presented with above presentation and was started on IV antibiotics. ESR was 45, C-reactive protein of 174. MRSA stop was negative so vancomycin was discontinued. She improved significantly on Zosyn. Leukocytosis resolved. Electrolytes were replaced. She was evaluated by physical therapy which recommended home with home health and home PT. commercial lines account manager and clinical social work therapist on board. She was transitioned to oral antibiotics to complete 10 day course. Nursing staff aware to provide follow-up appointment with primary care physician. Blood cultures no growth to date. Urine cultures were negative. DVT study was negative. follow up with PCP in one week. Discharge discussed with: patient, nurse, social work, case management, managing consultant clinical professor - Time Spent with Patient Total time spent providing and/or coordinating discharge services: Time spent: Greater than 30 minutes (35) - Discharge Medications Prescriptions: New cephALEXin [Keflex] 500 mg PO QID 7 Days #28 capsule Continued Levothyroxine [Synthroid] 75 mcg PO MOTUWETHFRSA metFORMIN [Glucophage] 500 mg PO BIDWM Gabapentin [Neurontin] 600 mg PO HS diazePAM [Valium] 2 mg PO HS Sodium Chloride/Aloe Vera [[place] Saline Nasal Gel Star] 2 spray NS 1-2XD PRN PRN Reason: Dry Nasal Passages Ergocalciferol (VITAMIN D2) [Vitamin D2] 50,000 unit PO TU HYDROcodone/Acet 10/325 mg [[place] 10-325 mg] 1 tab PO Q4H PRN PRN Reason: Pain amLODIPine [Norvasc] 5 mg PO QAM Furosemide [Lasix] 40 mg PO HS PRN PRN Reason: Edema Diclofenac Sodium [Voltaren] 4 gm TP QID PRN PRN Reason: Pain Levothyroxine Sodium [Euthyrox] 150 mcg PO GOEL Omeprazole [PriLOSEC] 20 mg PO BID Trazodone HCl 200 mg PO HS Home Medications: Gabapentin [Neurontin] 600 mg PO HS 03/14/15 [History] Levothyroxine [Synthroid] 75 mcg PO MOTUWETHFRSA 03/14/15 [History] diazePAM [Valium] 2 mg PO HS 03/14/15 [History] metFORMIN [Glucophage] 500 mg PO BIDWM 03/14/15 [History] Ergocalciferol (VITAMIN D2) [Vitamin D2] 50,000 unit PO TU 07/20/17 [History] Sodium Chloride/Aloe Vera [[place] Saline Nasal Gel Star] 2 spray NS 1-2XD PRN 07/20/17 [History] Furosemide [Lasix] 40 mg PO HS PRN 01/07/18 [History] HYDROcodone/Acet 10/325 mg [[place] 10-325 mg] 1 tab PO Q4H PRN 01/07/18 [History] amLODIPine [Norvasc] 5 mg PO QAM 01/07/18 [History] Diclofenac Sodium [Voltaren] 4 gm TP QID PRN 10/06/18 [History] Levothyroxine Sodium [Euthyrox] 150 mcg PO GOEL 10/06/18 [History] Omeprazole [PriLOSEC] 20 mg PO BID 10/06/18 [History] Trazodone HCl 200 mg PO HS 10/06/18 [History] cephALEXin [Keflex] 500 mg PO QID 7 Days #28 capsule 10/07/18 [Rx] Allergies/Adverse Reactions: Allergy/AdvReac Type Severity Reaction Status Date / Time Sulfa (Sulfonamide Allergy See Verified 10/06/18 16:43 Antibiotics) Comments Date of admission: 10/04/18 23:53 Primary care physician: PCP NONE Consults: 10/07/18 09:04 Consult to Occupational Therapy [CONS] Routine Comment: Evaluate, develop and implement POC Reason for Consult: BMAT 3; deconditioning, legally blind Does patient have active BEDREST order?: No Is patient medically & hemodynamically stable?: Yes Patient assessed for mobility or mobilized this visit?: No Consult to Physical Therapy [CONS] Routine Comment: Evaluate, develop and implement POC Reason for Consult: BMAT 3; deconditioning, legally blind Does patient have active BEDREST order?: No Is patient medically & hemodynamically stable?: Yes Patient assessed for mobility or mobilized this visit?: No - Constitutional Vitals: Temp Pulse Resp BP Pulse Ox 98.2 F 61 15 154/79 97 10/07/18 07:35 10/07/18 07:35 10/07/18 07:35 10/07/18 07:35 10/07/18 10:02 Exam: General: Patient is alert, oriented, no acute distress, legally blind Head: atraumatic, normocephalic, Eye: normal appearance, PERRL, no scleral icterus, no conjunctival injection ENT: mucous membranes moist, normal external ear exam Neck: normal inspection, trachea midline, full ROM, no carotid bruits Chest: normal inspection, symmetric chest rise Respiratory: Good respiratory effort. Bilateral breath sounds are clear without wheezing, crackles, or rhonchi. Cardiovascular: Regular rate and rhythm. s1 and s2 No clicks, rubs, gallops, or murmors. Abdomen: Bowel sounds present normoactive x-4 quadrants. Abdomen is soft, nondistended. no Epigastric tenderness. No guarding or rebound. No organomegaly noted, obese musculoskeletal: Spontaneously moving all extremities. Has erythema and warmth along with petechiae from left foot all the way up to upper shins just below the knee area is marked ( significantly improved) , no calf tenderness Skin: warm, dry, intact. Neuro: Alert and oriented x3 , no focal deficit , legally blind Psych: Patient's affect is normal - Patient Status Disposition: Home Health Service Condition: Fair Functional capacity at discharge: uses cane/walker Overall status at discharge: patient is progressing back to baseline - Discharge Instructions Follow Up With: NONE,PCP [Primary Care Provider] - - Diet and Activity Activity: as per physical therapy, increase activity as tolerated Diet: diabetic diet
[2018-10-07 12:29] VITALS: BP 180/83
--- NOTE | 2018-10-07 13:06 | Physician Discharge Referral ---
Home Health/Hosp Referral Info Transfer to: Home Health Provider in Charge Post Discharge: PCP - Diagnosis (1) Cellulitis Priority: Primary Status: Acute (2) Type 2 diabetes mellitus Priority: Secondary Status: Chronic (3) Legally blind Priority: Secondary Status: Chronic (4) DVT prophylaxis Priority: Secondary Status: Acute - Respiratory Orders Smoking Cessation: Smoking cessation has been advised. For more information, call the [place] Tobacco Quit Line at 5-751-JLRE-NOW. - Diet/Nutrition Diet/Nutrition Orders: Cardiac (diabetic) - Activity Activity Orders: Ambulate - Services Needed Following services are medically necessary services: Nursing, Home Health Aide, Physical Therapy - Transfer Medications Prescriptions: Cefdinir [Omnicef] 300 mg PO BID 7 Days #14 capsule Home Medications: Gabapentin [Neurontin] 600 mg PO HS 03/14/15 [History] Levothyroxine [Synthroid] 75 mcg PO MOTUWETHFRSA 03/14/15 [History] diazePAM [Valium] 2 mg PO HS 03/14/15 [History] metFORMIN [Glucophage] 500 mg PO BIDWM 03/14/15 [History] Ergocalciferol (VITAMIN D2) [Vitamin D2] 50,000 unit PO TU 07/20/17 [History] Sodium Chloride/Aloe Vera [[place] Saline Nasal Gel [place]] 2 spray NS 1-2XD PRN 07/20/17 [History] Furosemide [Lasix] 40 mg PO HS PRN 01/07/18 [History] HYDROcodone/Acet 10/325 mg [[place] 10-325 mg] 1 tab PO Q4H PRN 01/07/18 [History] amLODIPine [Norvasc] 5 mg PO QAM 01/07/18 [History] Diclofenac Sodium [Voltaren] 4 gm TP QID PRN 10/06/18 [History] Levothyroxine Sodium [Euthyrox] 150 mcg PO GOEL 10/06/18 [History] Omeprazole [PriLOSEC] 20 mg PO BID 10/06/18 [History] Trazodone HCl 200 mg PO HS 10/06/18 [History] Cefdinir [Omnicef] 300 mg PO BID 7 Days #14 capsule 10/07/18 [Rx] Allergies/Adverse Reactions: Allergy/AdvReac Type Severity Reaction Status Date / Time Sulfa (Sulfonamide Allergy See Verified 10/06/18 16:43 Antibiotics) Comments Certification: Further, I certify that my clinical findings support that this patient is h omebound (i.e. absences from home require considerable and taxing effort and are for medical reasons or sabianism services or infrequently or short duration when for other reasons) because: Homebound Reason: Patient requires assistance of a person or device to safely leave home Attestation: My signature below is to certify that this patient is under my care and that I, or nurse practitioner, or a physician's editorial assistant working with me, has a [id number] encounter with this patient.
[2018-10-07] MEDS ORDERED: Cefdinir 300 MG CAPSULE PO SCH (21:00)
--- NOTE | 2018-10-08 09:48 | Electrocardiograph Report ---
[facility] Test Date: 2018-10-04 Pat Name: Elana Pruett Department: EXAM5 Room: 3A45 Gender: F Partridge Farmer: : 1940 Requested By: [id number] Order Number: [id number] Reading MD: Garland Marie Measurements Intervals [place] Rate: 69 P: 55 KS: 153 QRS: -16 QRSD: 97 T: 3 QT: 421 QTc: 451 Interpretive Statements Sinus rhythm Borderline left axis deviation Low voltage, precordial leads Electronically Signed On 10-08-2018 9:47:08 EDT by Garland Marie
== END 2018-10-07 14:49 | disposition home health service (06) | DRG 603 ==
LOC: EMEROOARM 17:54 → 3ANU 17:54 → SUATTDRO 23:53
PROVIDERS: ADMIT Pediatrics; ATTEND Internal Medicine